=== PATIENT | female | born 2000 | race African-American/Black ===

== ENCOUNTER 2022-08-19 17:28 | Emergency (ER) | payer OTHER, SELFPAY ==
--- NOTE | ~2022-08-19 | XR_ITS ---
EXAM: XR ankle LT min 3V, XR foot LT min 3V DATE: 08/19/2022 18:19 (accession [id number]), 08/19/2022 18:18 (accession [id number]) HISTORY: rolled LT ankle/foot x 2days pain lateral aspect . COMPARISON: None available. FINDINGS: Normal mineralization. No fracture or dislocation. No lytic or blastic lesion. Joint space s are maintained. No erosion or periosteal change. Soft tissues within normal limits. IMPRESSION: No acute osseous finding in the left ankle or left foot. Reviewed, dictated and finalized at location K. UAL CUSTOMER ASSISTANT IMPRESSION: No acute osseous finding in the left ankle or left foot.
--- NOTE | 2022-08-19 17:34 | ED.LOWEXIN ---
HPI - Extremity Injury (Lower) General Chief Complaint: Extremity Injury, Lower Stated Complaint: lt ankle injury Time Seen by Provider: 08/19/22 18:21 Source: patient and RN notes reviewed Mode of arrival: ambulatory Limitations: no limitations History of Present Illness HPI Narrative: 22-year-old female presents with concern for left ankle pain. Reports she was wearing high heels on Friday when she rolled her ankle. She reports lateral pain with range of motion and weight-bearing. She denies no pain at rest. She denies swelling, bruising. She reports she has been elevating the ankle. complaint: ankle injury Related Data Home Medications Medication Instructions Recorded Confirmed No Home Medications 08/19/22 08/19/22 Allergies Allergy/AdvReac Type Severity Reaction Status Date / Time No Known Allergies Allergy Verified 08/19/22 17:39 Review of Systems Review of Systems: CONSTITUTIONAL: Denies malaise, chills, sweats, or fever. SKIN: Denies rash or itching, open skin, laceration, abrasion, redness, warmth, swelling. MUSCULOSKELETAL: Reports left ankle and foot pain NEUROLOGIC: Denies numbness, weakness All systems reviewed & are unremarkable except as noted in HPI and below PMFSH Comments At time of signature, agree with nursing past medical, surgical, social and family history. There is no relevant family history pertinent to the presenting complaint Exam Narrative: GENERAL: Well-appearing, well-nourished, and in no acute distress. HEAD: Normocephalic, atraumatic. EYES: PERRLA, conjunctivae clear NECK: Supple. CHEST: Speaks in full sentences. No respiratory distress. HEART: Regular rate and rhythm. Normal and equal peripheral pulses. EXTREMITIES: Left ankle, foot, digits have normal strength and sensation, normal range of motion. No edema or ecchymosis. 5/5 strength with ankle in digit flexion and extension. Normal sensation with sensitivity to light touch and pain. No point tenderness. No open wounds, no skin tenting, no devitalized tissue or atrophy, no trophic changes, no obvious deformity, alignment normal, nearby joints and structures intact. Distal pulses palpable and equal bilaterally, skin warm, dry, pink. Capillary refill less than 3 seconds. SKIN: Warm, dry, no rash. NEURO: Alert and oriented x3. PSYCH: Normal mood and affect Course Course Emergency Course: Patient is aware of diagnosis, understands and agrees to treatment plan. Anticipatory guidance given. Patient agrees to follow-up as directed and is aware of reasons to seek care at the emergency department. Portions of this record may have been created with voice recognition software Level of Care: Express Care Visit Vital Signs Vital signs: Vital Signs Temperature 98.2 F 08/19/22 17:39 Pulse Rate 91 08/19/22 17:39 Respiratory Rate 16 08/19/22 17:39 Blood Pressure 117/79 08/19/22 17:39 Pulse Oximetry 100 08/19/22 17:39 Oxygen Delivery Room Air 08/19/22 17:39 Temperature 98.2 F 08/19/22 17:39 Pulse Rate 91 08/19/22 17:39 Respiratory Rate 16 08/19/22 17:39 Blood Pressure 117/79 08/19/22 17:39 Pulse Oximetry 100 08/19/22 17:39 Oxygen Delivery Room Air 08/19/22 17:39 Reviewed. MDM - Extremity Injury (Lower) MDM Narrative Medical decision making narrative: Patients injury and pain is consistent with musculoskeletal etiology. No signs of neurological or vascular compromise on exam. Compartments and tissues are soft without signs of compartment syndrome. Pain is felt appropriate for further evaluation on an outpatient basis. Lab Data Labs: UCG Bedside Result Negative Reference Range: Negative UCG Bedside Result Negative Reference Range: Negative Imaging Data My impression: Images reviewed, interpreted by radiologist, agree, see report. Radiologist's i
[2022-08-19 17:39] VITALS: BP 117/79; PULSE 91; RESP 16; TEMP 36.8; O2SAT 100
== END 2022-08-19 18:33 | disposition home or self-care (01) ==
PROVIDERS: Emergency Provider Nurse Practitioner; PCP Nurse Practitioner Family
DX: S93.402A Sprain of unspecified ligament of left ankle, initial encounter (principal); S96.912A Strain of unspecified muscle and tendon at ankle and foot level, left foot, initial encounter; X50.0XXA Overexertion from strenuous movement or load, initial encounter
CPT/HCPCS: 73610; 73630; 81025; 99213; G0463

== ENCOUNTER 2023-12-17 17:47 | Emergency (ER) | payer OTHER, SELFPAY ==
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
[2023-12-17 17:52] VITALS: BP 143/86; PULSE 87; RESP 16; TEMP 36.3; O2SAT 100
[2023-12-17] MEDS: CYCLOBENZAPRINE HCL 5 MG TABLET PO (18:26)
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
[2023-12-17 19:23] VITALS: BP 127/80; PULSE 78; RESP 15; O2SAT 99
== END 2023-12-17 19:25 | disposition home or self-care (01) ==
PROVIDERS: Emergency Provider Physician Assistant; PCP Nurse Practitioner Family
DX: S09.90XA Unspecified injury of head, initial encounter (principal); S16.1XXA Strain of muscle, fascia and tendon at neck level, initial encounter; V43.52XA Car driver injured in collision with other type car in traffic accident, initial encounter
CPT/HCPCS: 70450; 72125; 99284; A9270

== ENCOUNTER 2025-03-22 21:11 | Emergency (ER) | payer SELFPAY ==
--- NOTE | ~2025-03-22 | CT_ITS ---
EXAMINATION: CT abdomen pelvis w con DATE: 03/23/2025 02:15 INDICATION: Abdominal pain. Vomiting. TECHNIQUE: Computed tomography (CT) of the abdomen and pelvis was performed 100 mL Omnipaque 350 intravenous contrast. Automated exposure control and iterative reconstruction technique were employed. The dose-length product was 442.07 mGy-cm. COMPARISON: None. FINDINGS: The visualized portions of the lung bases are clear without pneumonia or pleural effusion. The heart size is normal. No pericardial effusion. There is diffuse hepatic steatosis. The gallbladder, spleen, pancreas, adrenal glands, and kidneys are normal. There are no dilated loops of bowel. The appendix is normal. There are no pathologically enlarged lymph nodes. There is no free intraperitoneal fluid. There is mild lumbar spondylosis. IMPRESSION: 1. Diffuse hepatic steatosis. Reviewed, dictated and finalized at location E.
--- OUTSIDE RECORDS SUMMARY | 2025-03-22 21:13 | XMS_ITS | Clinical Summary ---
Author Organization [facility] [address] [place] Address [address] [place] [id number] Care Team Providers Care Sulphate Tester Name Role Phone Unknown, Notinfile Primary Care Provider Unavail able Allergies No known active allergies Medications cyanocobalamin (Vitamin B-12) 500 mcg tablet Take 1 tablet every day by oral route. 3 Active ergocalciferol (VITAMIN D) 50,000 unit capsule Take 1 capsule every week by oral route. 3 Active escitalopram (LEXAPRO) 10 mg tablet Take 1 tablet (10 mg total) by mouth daily 3 Active fluticasone propionate (FLONASE) 50 mcg/actuation nasal spray Administer 1-2 sprays into affected nostril(s) daily 2 Active ketoconazole (NIZORAL) 2 % cream APPLY TOPICALLY TO AFFECTED AREA EVERY DAY NEEDED Active ondansetron ODT (ZOFRAN-ODT) 4 mg disintegrating tablet Take 1 tablet (4 mg total) by mouth every 8 (eight) hours as needed 9 Active triamcinolone (KENALOG) 0.1 % cream APPLY A THIN LAYER TOPICALLY TO AFFECTED AREA TWICE A DAY NEEDED Active valACYclovir (VALTREX) 1 gram tablet Take 1 tablet (1,000 mg total) by mouth daily 3 Active Active Problems No known active problems Social History Tobacco Use Types Packs/Day Years Used Date Smoking Tobacco: Never Assessed Personal Safety Answer Date Recorded Getting School Help Needed Not on file 10/17 Comments Unknown Sex and Gender Information Value Date Recorded Sex Assigned at Not on file Legal Sex Female 12:24 AM CDT Gender Identity Female 10/18/2023 10:06 AM CDT Sexual Orientation Bisexual 10/18/2023 10 :06 AM CDT Last Filed Vital Signs Vital Sign Reading Time Taken Comments Blood Pressure 122/76 10/18/2023 3:54 PM CDT Pulse 100 10/18/2023 3:54 PM CDT Temperature 37 C (98.6 F) 10/18/2023 3:54 PM CDT Respiratory Rate 20 10/18/2023 3:54 PM CDT Oxygen Saturation 98% 10/18/2023 3:54 PM CDT Inhaled Oxygen Concentration - - Weight 69.4 kg (153 lb) 10/18/2023 3:54 PM CDT Height 165.1 cm (5' 5) 10/18/2023 3:54 PM CDT Body Mass Index 25.46 10/18/2023 3:54 PM CDT Plan of Treatment Health Maintenance Due Date Last Done Comments Cervical Cancer Screening 2001 Depression Screening 2001 Hepatitis C Screening 2001 Regular Well Visit/Exam 18-64 2019 DTaP/Tdap/Td Vaccine (7 - Td or Tdap) 01/14/2022 01/15/2012, 12/12/2005, 05/14/2002, Additional history exists Influenza Vaccine (#1) 2025 07/15/2016, 2012 Pneumococcal vaccine <65 Aged Out 002, 2001, 2001 No longer eligible based on patient's age to complete this topic Hepatitis B Screening Completed 05/14/2002 , 2001, 2001 Varicella Vaccines Completed 01/15/2012, 08/16/2002 HPV Vaccines Completed 09/20/2015, 03/25, 02/13/2015 Insurance [facility] Care Teams Sulphate Tester Relationship Specialty Start Date End Date Unknown, Notinfile PCP - General 10/18/23
--- OUTSIDE RECORDS SUMMARY | 2025-03-22 21:13 | XMS_ITS | Clinical Summary ---
Demographics Address [address] [place] [address] Mobile Phone Home Phone Preferred Language Icelandic Marital Status Single Tenriism Affiliation None Race Black or Debbie rican Ethnic Group Not or Lati no Author Organization [facility] Address [address] [place] [address] Phone Care Team Providers Care Main Entree Cook And Cashier Name Role Phone Ben Deluna MD Primary Care Provider [phone] Allergies No known active allergies Medications fluticasone (FLONASE) 50 MCG/ACT NA SUSPIndications: Sinusitis acute 1-2 Sprays by Nasal route daily. Use in each nostril as directed. 1 Inhaler 0 2 Active Additional Information Patient not taking.Reported on 02/01/2019 ondansetron (ZOFRAN-ODT) 4 MG TABLET DISPERSIBLE Take 1 Tab by mouth every 8 hours as needed for Nausea - 1st line. 10 Tab 9 Active valACYclovir (VALTREX) 1 GM Tablet Take 1 Tab by mouth 2 times daily. 20 Tab 0 Active Active Problems Problem Noted Date Diagnosed Date Hypokalemia 08/20/2018 Tylenol overdose 08/19/2018 Immunizations Immunization Administration Dates Next Due PUR FLU 3+ YRS PRES FREE QUAD IM 07/15/2016 Social History Tobacco Use Types Packs/Day Years Used Date Smoking Tobacco: Never Smokeless Tobacco: Never Alcohol Use Standard Drinks/Week Comments No 0 (1 standard drink = 0.6 oz pur e alcohol) Comments No Sex and Gender Information Value Date Recorded Sex Assigned at Not on file Legal Sex Female 2:43 AM FUEL MANAGEMENT HANDLER Gender Identity Not on file Sexual Orientation Not on file Last Filed Vital Signs Vital Sign Reading Time Taken Comments Blood Pressure 114/60 06/13/2020 6:51 PM FUEL MANAGEMENT HANDLER Pulse 95 06/13/2020 6:51 PM FUEL MANAGEMENT HANDLER Temperature 36.9 C (98.5 F) 06/13/2020 6:51 PM FUEL MANAGEMENT HANDLER Respiratory Rate 16 06/13/2020 6:51 PM FUEL MANAGEMENT HANDLER Oxygen Saturation 100% 06/13/2020 6:51 PM FUEL MANAGEMENT HANDLER Inhaled Oxygen Concentration - - Weight 61.2 kg (135 lb) 06/13/2020 6:51 PM FUEL MANAGEMENT HANDLER Height 165.1 cm (5' 5) 06/13/2020 6:51 PM FUEL MANAGEMENT HANDLER Body Mass Index 22.47 06/13/2020 6:51 PM FUEL MANAGEMENT HANDLER Plan of Treatment Health Maintenance Due Date Last Done Comments Hepatitis C Virus (HCV) Screening 2001 Influenza Immunization (#1) 2025 07/15/2016, 0 03/18/2013 SARS-COV-2 Immunization ( season) 2025 Respiratory Syncytial Virus (RSV) Immunization (Adult) (1 - 1-dose 75+ series) 02/12/2076 Pneumococcal Immunization Combined Aged Out 2001, 2001, 2001 No longer eligible based on patient's age to complete this topic Hepatitis B Immunization Completed 002, 2001, 2001 Measles Mumps Rubella (MMR) Immunization Discontinued 03/18/2005, 02/12/2002 Polio (IPV) Immunization Discontinued 006, 2001, 2001, Additional history exists DTaP/Tdap/Td Immunization Discontinued 2011, 12/12/2005, 05/14/2002, Additional history exists Hepatitis A Immunization Discontinued 01/15/2012, 11/22 TdaP Immunization Completed 01/15/2012 Varicella Immunization Discontinued 01/15/2012, 2002 Human Papillomavirus (HPV) Immunization Completed 09/20/2015, 04/21/2015, 02/13/2015 Meningococcal B Immunization Discontinued 01/14/2018 Meningococcal Immunization (ACWY) Completed 01/14/2018, 03/18/2013 Rotavirus Immunization Aged Out No lo nger eligible based on patient's age to complete this topic Insurance * Guarantor: BERT MARKS Account Type Relation to Patient Date of Phone Billing Address Personal/Family Mother 1985 [address] [place] [address] MEDICAID [employer] * Guarantor: BERT MARKS Account Type Relation to Patient Date of Phone Billing Address Personal/Family Mother [id number] MEDICAID [employer] [address] [place] [id number] [employer] Advance Directives * Full Code (Latest Code Status on File) Date Activated Date Inactivated Comments 08/19/2018 6:49 AM 08/20/2018 9:07 PM CPR-Full Ervin atment: FULL ARREST: Attempt Resuscitation/CPR wit intubation and mechanical ventilation. PRE-ARREST: Use entire range of life support measures to stabilize the patient. Care Teams Main Entree Cook And Cashier Relationship Specialty Start Date End Date Ben Deluna MD [address] [place] [id number] PCP - General 05/09/11
--- OUTSIDE RECORDS SUMMARY | 2025-03-22 21:13 | XMS_ITS | Patient Health Record ---
Demographics Address [address] [place] [address] Mobile Preferred Language en Marital Status unmarried Zoroastrianism Affiliation Unknown Race Black or Debbie rican Ethnic Group Not or Lati no Author Organization [facility] Address [address] [place] [address] Care Team Providers Care Fish Hatchery Inspector Name Role Phone Mikie, Ben Primary Care Provider Allergies No Known Allergies Reason For Referral No Information Immunizations Vaccine Route Administration Date Status Comme nts BOOSTRIX Unknown 01/15/2012 Administered Comvax (Hep B and Hib) Unknown 2001 Administered Comvax (Hep B and Hib) Unknown 2001 Administered Comvax (Hep B and Hib) Unknown 05/14/2002 Administered DAPTACEL Unknown 2001 Administered DAPTACEL Unknown 2001 Administered DAPTACEL Unknown 2001 Administered DAPTACEL Unknown 05/14/2002 Administered DAPTACEL Unknown 12/12/2005 Administered FLUMIST QUADRIVALENT Unknown 03/18/2013 Administered GARDASIL 9 IM Intramuscular 02/13/2015 Administered GARDASIL 9 IM Intramuscular 04/21/2015 Administered GARDASIL 9 IM Intramuscular 09/20/2015 Administered HAVRIX Ped/Adol Unknown 12/12/2005 Administered HAVRIX Ped/Adol Unknown 01/15/2012 Administered IPOL Unknown 2001 Administered IPOL Unknown 2001 Administered IPOL Unknown 2001 Administered IPOL Unknown 12/12/2005 Administered Menactra Unknown 03/18/2013 Administered Menactra Unknown 01/14/2018 Administered MMR II Unknown 02/12/2002 Administered MMR II Unknown 03/18/2005 Administered Prevnar PCV7 Unknown 2001 Administered Prevnar PCV7 Unknown 2001 Administered Prevnar PCV7 Unknown 2001 Administered TRUMENBA Unknown 01/14/2018 Administered VARIVAX Unknown 08/16/2002 Administered VARIVAX Unknown 01/15/2012 Administered Social History HOUSEHOLD SMOKE - Question Answer Notes Smoker in Household: YES Problems Problem Type SNOMED Code ICD Code Onset Dates Problem Status W/U Status Risk Notes Problem Information temporarily unavailable Allergic rhinitis, cause unspecified (J30.9) Active confirmed Problem Information temporarily unavailable Depressed mood (F32.9) Active confirmed Problem Information temporarily unavailable Contact dermatitis and eczema (L25.9) Active confirmed Problem Information temporarily unavailable Vitamin D deficiency (E55.9) Active confirmed Problem Information temporarily unavailable Other depression (F32.89) Active confirmed Problem Information temporarily unavailable Iron deficiency anemia, unspecified iron deficiency anemia type (D50.9) Active confirmed Problem Information temporarily unavailable Constipation in female (K59.00) Active confirmed Problem Information temporarily unavailable 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
--- OUTSIDE RECORDS SUMMARY | 2025-03-22 21:13 | XMS_ITS | Clinical Summary ---
Demographics Address [address] [place] [address] Home Phone Preferred Language Unknown Marital Status Single Faith Affiliation Unknown Race Black or Debbie rican Ethnic Group Unknown Author Organization [facility] Address [address] [place] [address] Care Team Providers Care Wire Setter Name Role Phone Unavailable Primary Care Provider Unavailabl e Social History Tobacco Use Types Packs/Day Years Used Date Smoking Tobacco: Never Assessed Inadequate Housing Answer Date Recorded Social Determinants: Housing (Overall Score Help er) 0 02/02/2019 Comments Unknown Sex and Gender Information Value Date Recorded Sex Assigned at Not on file Legal Sex Female 12:31 PM CDT Gender Identity Not on file Sexual Orientation Not on file Plan of Treatment Health Maintenance Due Date Last Done Comments Depression Screening 2013 Varicella Vaccine (1 of 2 - 13+ 2-dose series) 2014 HPV Vaccine (1 - 3-dose series) 02/12/2016 Chlamydia and Gonorrhea Scre ening (if sexually active) 2019 DTaP/Tdap/Td Vaccine (1 - Tdap) 02/12/2020 Hepatitis B Vaccine (1 of 3 - 19+ 3-dose series) 02/12/2020 COVID-19 Vaccine ( - 2023-2 5 season) 2025 Influenza Vaccine (#1) 2025 Hepatitis A Vaccine Aged Out No longe r eligible based on patient's age to complete this topic Meningococcal Serogroup B Vaccine Aged Out No longer eligible based on patient's age to complete this topic Meningococcal Vaccine Aged Out No iraida violet eligible based on patient's age to complete this topic Pneumococcal Vaccine 0-49 Aged Out No longer eligible based on patient's age to complete this topic
[2025-03-22 21:21] VITALS: BP 127/87; PULSE 124; RESP 18; TEMP 36.7; O2SAT 100
[2025-03-22 21:41] LABS: BEDSIDEPREGUCG Negative (Negative)
[2025-03-22 22:33] LABS: Add Urine Microscopic? YES; Appearance Urine Turbid (Clear); Glucose Urine UA Negative (Negative); Leukocyte Esterase Ur Trace LEU/UL (Negative); Need Manual Microscopic Reviewed; Nitrate Urine Negative (Negative); Non Pathogenic Casts >20; Specific Grav Ur 1.032 (1.001-1.035)
--- OUTSIDE RECORDS SUMMARY | 2025-03-23 00:07 | XMS_ITS | Data Portability ---
Author Organization [place] - [facility] [employer], Main Office Address [address] [place] [address] Assessment Encounter Date Assessment Date Assessment LastModified by Organization Details LastModified Time 12/04/2022 12/04/2022 WWE- referred to [facility]- Lidia Call office if worse, ER if life-threatening illness RTC in 1 month She voices understanding of plan and agrees [email or web address] Not available 12/04/2022 13:13:21 01/01/2023 01/01/2023 WWE- referred to [facility]ER- Lidia WEA-12/04/22 Call office if worse, ER if life-threatening illness RTC in 4 months She voices understanding of plan and agrees [email or web address] Not available 01/01/2023 13:51:38 Plan of Treatment Reminders Order Date Submit Date Provider Last Modified By Organization Details Last Modified Time Details Appointments None recorded. Lab gamma-gluta myl transferase (ggt), serum 2022 023 [facility] (Lab), [address] [place], [address], 19:24:30 hepatitis panel (A+B+C), acute, serum 2022 023 [facility] (Lab), [address] [place], [address], 19:47:45 hepatic function panel, serum 2022 023 [facility] (Lab), [address] [place], [address], 3 19:24:36 potassium, serum or plasma 2022 023 [facility] (Lab), [address] [place], [address], 3 19:24:27 lipid panel, serum 2022 023 [facility] (Lab), [address] [place], [address], 3 19:34:53 CBC w/ auto diff 2022 023 [facility] (Lab), [address] [place], [address], 3 19:34:15 CMP, serum or plasma 2022 023 [facility] (Lab), [address] [place], [address], 3 19:34:47 ferritin, serum or plasma 2022 023 [facility] (Lab), [address] [place], [address], 3 20:26:54 iron + total iron-bindin g capacity (TIBC), serum 2022 023 [facility] (Lab), [address] [place], [address], 3 19:33:14 vitamin D, 25-hydroxy, total, serum 2022 023 [email or web address] [facility] (Lab), [address] [place], [address], 3 10:10:33 glycohemogl obin, total, blood 2022 023 [facility] (Lab), [address] [place], [address], 3 21:18:11 vitamin B12 + folate, serum or blood 2022 023 [email or web address] [facility] (Lab), [address] [place], [address], 3 10:10:33 Referral gynecologis t referral - needs WWE 2022 023 [place] [address] Arti Murillo, [address], [address], Ph [phone] 4 15:22:52 Procedures None recorded. Surgeries None recorded. Imaging None recorded. Medication Orders escitalopra m 10 mg tablet [address] [id number], [address], [place], [id number], 3 13:49:22 ketoconazol e 2 % topical cream 2022 023 [facility][id number], [address], [place], [id number], 3 12:30:12 triamcinolo ne acetonide 0.1 % topical cream 2022 023 [facility] #[id number], [address], [place], [id number], 3 12:30:09 escitalopra m 10 mg tablet 2022 023 [facility] #[id number], [address], [place], [id number], 3 12:30:10 Patient TargetsNo targets recorded. Patient Instructions Encounter Date Encounter Id Patient Instructions Last Modified By Organization Details Last Modified Time 12/04/2022 [id number] INFLUENZA VACCIN E Your next one in the fall of 2022 TD/TDAP Patient will get at local pharmacy/health department MAMMOGRAM No screening indicated at this time/ no family history CERVICAL SCREENING/PELVIC EXAMINATION Ordered COLORECTAL SCREENING No screening necessary until age 45 DEPRESSION SCREENING Positive BMI Appropriate Continue healthy eating & exercise NUTRITION Continue healthy eating & exercise PHYSICAL ACTIVITY Need more activity Recommendation of 30 minutes of daily activity VISION Recommended today ALCOHOL USE Occasional/Social Use TOBACCO USE non smoker SEXUALLY ACTIVE Yes, Safe sex practices, condom use, and other forms of contraceptives that are available were discussed with patient GLUCOSE SCREENING Ordered LIPID SCREENING Ordered [email or web address] Not available 12/04/2022 13:15:02 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 0 Not Available [facility] (Lab) [address] [place], [address], 03/12/2021 15:32:50 03/12/20 21 03/12/2021 URINA LYSIS COMPL ETE/I RIS W/RFX color light- yellow Not Available [facility] (Lab) [address] [place], [address], 03/12/2021 15:32:50 03/12/20 21 03/12/2021 URINA LYSIS COMPL ETE/I RIS W/RFX appear clear Not Available [facility] (Lab) [address] [place], [address], 03/12/2021 15:32:50 03/12/20 21 03/12/2021 URINA LYSIS COMPL ETE/I RIS W/RFX specific gravity 1.025 1.001- 1.030 Not Available [facility] (Lab) [address] [place], [address], 03/12/2021 15:32:50 03/12/20 21 03/12/2021 URINA LYSIS COMPL ETE/I RIS W/RFX leukocytes negati ve dominick/u L negati ve- Not Available [facility] (Lab) [address] [place], [address], 03/12/2021 15:32:50 03/12/20 21 03/12/2021 URINA LYSIS COMPL ETE/I RIS W/RFX nitrite negati ve negati ve- Not Available [facility] (Lab) [address] [place], [address], 03/12/2021 15:32:50 03/12/20 21 03/12/2021 URINA LYSIS COMPL ETE/I RIS W/RFX protein negati ve mg/dL negati ve- Not Available [facility] (Lab) [address] [place], [address], 03/12/2021 15:32:50 03/12/20 21 03/12/2021 URINA LYSIS COMPL ETE/I RIS W/RFX glucose normal mg/dL normal - Not Available [facility] (Lab) [address] [place], [address], 03/12/2021 15:32:50 03/12/20 21 03/12/2021 URINA LYSIS COMPL ETE/I RIS W/RFX ketones 20 mg/dL negati ve- abnormal Not Available [facility] (Lab) [address] [place], [address], 03/12/2021 15:32:50 03/12/20 21 03/12/2021 URINA LYSIS COMPL ETE/I RIS W/RFX urobilinogen normal mg/dL normal - Not Available [facility] (Lab) [address] [place], [address], 03/12/2021 15:32:50 03/12/20 21 03/12/2021 URINA LYSIS COMPL ETE/I RIS W/RFX bilirubin negati ve mg/dL negati ve- Not Available [facility] (Lab) [address] [place], [address], 03/12/2021 15:32:50 03/12/20 21 03/12/2021 URINA LYSIS COMPL ETE/I RIS W/RFX blood negati ve mg/dL negati ve- Not Available [facility] (Lab) [address] [place], [address], 03/12/2021 15:32:50 03/12/20 21 03/12/2021 URINA LYSIS COMPL ETE/I RIS W/RFX white blood cells 0-8 /i??h pfi?? 0-8 Not Available [facility] (Lab) [address] [place], [address], 03/12/2021 15:32:50 03/12/20 21 03/12/2021 URINA LYSIS COMPL ETE/I RIS W/RFX red blood cells 0-4 /i??h pfi?? 0-4 Not Available [facility] (Lab) [address] [place], [address], 03/12/2021 15:32:50 03/12/20 21 03/12/2021 URINA LYSIS COMPL ETE/I RIS W/RFX bacteria none Not Available [facility] (Lab) [address] [place], [address], 03/12/2021 15:32:50 03/12/20 21 03/12/2021 URINA LYSIS COMPL ETE/I RIS W/RFX mucous occasi onal /i??l pfi?? abnormal Not Available [facility] (Lab) [address] [place], [address], 03/12/2021 15:32:50 03/12/20 21 03/12/2021 URINA LYSIS COMPL ETE/I RIS W/RFX squamous epithelial modera te /i??l pfi?? abnormal Not Available [facility] (Lab) [address] [place], [address], 03/12/2021 15:32:50 03/12/20 21 03/14/2021 RPR SCREE N RPR non-re active nonrea ctive Not Available [facility] (Lab) [address] [place], [address], 03/14/2021 16:03:23 03/12/20 21 03/13/2021 HSV 1 AND 2-SPE C AB, IGG W/RFX hsv 1 IgG, type spec 8.93 index 0.00-0 .90 high Negat monse <0.91 Equiv ocal 0.91 - 1.09 Posit monse >1.09 Note: Negat monse indic ates no antib odies detec kelton to HSV-1 . Equiv ocal may sugge st early infec tion. If clini vazquez appro priat e, retes t at later date. Posit monse indic ates antib odies detec kelton to HSV-1 . Not Available [facility] (Lab) [address] [place], [address], 03/13/2021 13:09:33 03/12/20 21 03/13/2021 HSV 1 AND 2-SPE C AB, IGG W/RFX hsv 2 IgG, type spec 3.09 index 0.00-0 .90 high Negat monse <0.91 Equiv ocal 0.91 - 1.09 Posit monse >1.09 Note: Negat monse indic ates no antib odies detec kelton to HSV-2 . Equiv ocal may sugge st early infec tion. If clini vazquez appro priat e, retes t at later date. Posit monse indic ates antib odies detec kelton to HSV-2 . [facility] [address] [place] [address] Lab Direc tor: Paulo burnett PhD, Phone : [phone] Not Available [facility] (Lab) [address] [place], [address], 03/13/2021 13:09:33 03/12/2003/13/2021 HSV 1 AND 2-SPE C AB, IGG W/RFX hsv-2 IgG supplemental test positi ve negati ve abnormal HSV-2 IgG HSV-2 IgG Type Speci fic Confi rmati on Inter preta tion ----- ----- ----- ----- ----- ----- ----- ----- ----- ----- ----- Posit monse/E quivo manolo Posit monse Indic ates the prese nce of detec table IgG antib odies to HSV-2 . ----- ----- ----- ----- ----- ----- ----- ----- ----- ----- ----- Posit monse/E quivo manolo Negat monse Unabl e to confi rm the prese nce of IgG antib odies to HSV-2 . Recom mend retyves harris in 2-4 weeks . ----- ----- ----- ----- ----- ----- ----- ----- ----- ----- ----- Perfo rmed at: [facility] [address] [place] [address] Lab Direc tor: Paulo burnett PhD, Phone : [phone] Not Available [facility] (Lab) [address] [place], [address], 03/13/2021 13:09:33 03/12/20 21 03/12/2021 HEMOG LOBIN A1C HA1C 5.2 % 4.0-6. 0 Diabe angelito Scree cinthia Crite madeleine: <5.7% Consi stent with absen ce of diabe angelito 5.7-6 .4% Consi stent with incre ased risk for diabe angelito (pred iabet es) >OR=6 .5% Consi stent with diabe angelito REFER ENCE: Diabe angelito Care 2016, 39(Campoverde ppl.1 ):s13 -s22 Not Available [facility] (Lab) [address] [place], [address], 03/12/2021 19:50:50 03/12/20 21 03/12/2021 FOLAT E, SERUM /PLAS MA folate 5.44 NG/mL 2.76- Not Available [facility] (Lab) [address] [place], [address], 03/12/2021 17:53:30 03/12/20 21 03/12/2021 VITAM IN B12 (LOVE TRISH ) vb12 375 pg/mL 239-93 1 Not Available [facility] (Lab) [address] [place], [address], 03/12/2021 17:53:27 03/12/20 21 03/12/2021 HEPAT ITIS ACUTE PANEL hepatitis A IgM antibody non-re active non-re active For sampl es repor kelton as Sahara rey React monse for HAV IgM, it is recom wallace d a new speci men be obtai ezekiel in 2 weeks and retes kelton. Not Available [facility] (Lab) [address] [place], [address], 03/12/2021 17:40:59 03/12/20 21 03/12/2021 HEPAT ITIS ACUTE PANEL S/C 0.02 0.00-0 .79 Not Available [facility] (Lab) [address] [place], [address], 03/12/2021 17:40:59 03/12/20 21 03/12/2021 HEPAT ITIS ACUTE PANEL hepatitis B core IgM antibody non-re active non-re active Not Available [facility] (Lab) [address] [place], [address], 03/12/2021 17:40:59 03/12/20 21 03/12/2021 HEPAT ITIS ACUTE PANEL S/C 0.04 0.00-1 .10 Not Available [facility] (Lab) [address] [place], [address], 03/12/2021 17:40:59 03/12/20 21 03/12/2021 HEPAT ITIS ACUTE PANEL hepatitis B surface antigen non-re active non-re active Not Available [facility] (Lab) [address] [place], [address], 03/12/2021 17:40:59 03/12/20 21 03/12/2021 HEPAT ITIS ACUTE PANEL S/C 0.08 0.00-0 .99 Not Available [facility] (Lab) [address] [place], [address], 03/12/2021 17:40:59 03/12/20 21 03/12/2021 HEPAT ITIS ACUTE PANEL hepatitis C antibody non-re active non-re active Not Available [facility] (Lab) [address] [place], [address], 03/12/2021 17:40:59 03/12/20 21 03/12/2021 HEPAT ITIS ACUTE PANEL S/C 0.05 0.00-0 .99 Not Available [facility] (Lab) [address] [place], [address], 03/12/2021 17:40:59 03/12/20 21 03/12/2021 ROME TIN ferritin 10 NG/mL 6.24-1 37 Not Available [facility] (Lab) [address] [place], [address], 03/12/2021 17:25:50 03/12/20 21 03/12/2021 B-HCG TOTAL , QUANT ITATI VE human chorionic gonadotropin <2.39 mIU/m L 0.00-4 .82 WEEKS OF PREGN ADINA REFER ENCE RANGE S 4 420 TO 6,230 5 620 TO 29,30 0 6 3,660 TO 108,0 00 7 10,90 0 TO 148,0 00 8 30,70 0 TO 184,0 00 9 67,20 0 TO 169,0 00 10 30,00 0 TO 167,0 00 14 15,00 0 TO 92,10 0 15 10,60 0 TO 64,20 0 16 9,000 TO 52,80 0 17 6,700 TO 47,10 0 18 6,100 TO 42,10 0 19 6,800 TO 42,90 0 Not Available [facility] (Lab) [address] [place], [address], 03/12/2021 17:08:03 03/12/20 21 03/12/2021 VITAM IN D 25-HY DROXY [id number] 15.4 NG/mL 30-100 low Vitam in D Statu s: Defic ient: <20 ng/mL Insuf ficie nt: 20-29 ng/mL Suffi cient : 30-10 0 ng/mL Not Available [facility] (Lab) [address] [place], [address], 03/12/2021 17:06:44 03/12/20 21 03/12/2021 IRON/ TIBC PANEL iron 120 mcg/d L 42-175 Not Available [facility] (Lab) [address] [place], [address], 03/12/2021 16:51:08 03/12/20 21 03/12/2021 IRON/ TIBC PANEL total iron binding capacity 359 mcg/d L 265-47 5 Not Available [facility] (Lab) [address] [place], [address], 03/12/2021 16:51:08 03/12/20 21 03/12/2021 IRON/ TIBC PANEL % transferrin saturation 33 % 20-55 Not Available [facility] (Lab) [address] [place], [address], 03/12/2021 16:51:08 03/12/20 21 03/12/2021 IRON/ TIBC PANEL unsaturated iron bind capacity 239 mcg/d L 126-38 2 Not Available [facility] (Lab) [address] [place], [address], 03/12/2021 16:51:08 03/12/20 21 03/12/2021 LIPID PANEL cholesterol 180 mg/dL 140-19 9 NIH YOLANDE NSUS RECOM MENDA TION FOR RICK STERO L: ADULT CHILD LOW RISK: <200 <170 BORDE RLINE : <200- 239 ----- HIGH RISK: >240 >200 Not Available [facility] (Lab) [address] [place], [address], 03/12/2021 16:47:49 03/12/20 21 03/12/2021 LIPID PANEL triglyceride s 50 mg/dL 0-150 NIH YOLANDE NSUS REPOR T RECOM MENDA TION FOR TRIGL YCERI KARIN: ADULT CHILD LOW RISK: <150 ----- BODER LINE: 150-1 99 ----- HIGH RISK: >200 ----- Not Available [facility] (Lab) [address] [place] [address], [address], 03/12/2021 16:47:49 03/12/20 21 03/12/2021 LIPID PANEL HDL cholesterol 92 mg/dL 40- Not Available [facility] (Lab) [address] [place], [address], 03/12/2021 16:47:49 03/12/20 21 03/12/2021 LIPID PANEL LDL cholesterol, calculated 78 mg/dL 0-130 NIH YOLANDE NSUS REPOR T RECOM MENDA TIONS FOR LDL: ADULT CHILD LOW RISK <130 <110 (OPTI MAL LDL) <100 ----- BORDE RLINE : 130-1 59 ----- HIGH RISK: >160 >130 A TRIGL YCERI DE RESUL T >400 INVAL IDATE S THE CALCU LATIO N FOR LDL FRACT IONAT ION - THE LDL RESUL T WILL NOT BE REPOR KELTON. Not Available [facility] (Lab) [address] [place], [address], 03/12/2021 16:47:49 03/12/20 21 03/12/2021 COMPR EHENS MONSE METAB OLIC PANEL BUN 14 mg/dL 8-19 Not Available [facility] (Lab) [address] [place], [address], 03/12/2021 16:47:42 03/12/20 21 03/12/2021 COMPR EHENS MONSE METAB OLIC PANEL sodium 135 mmol/ L 137-14 5 low Not Available [facility] (Lab) [address] [place], [address], 03/12/2021 16:47:42 03/12/20 21 03/12/2021 COMPR EHENS MONSE METAB OLIC PANEL potassium 4.2 mmol/ L 3.5-5. 1 Not Available [facility] (Lab) [address] [place], [address], 03/12/2021 16:47:42 03/12/20 21 03/12/2021 COMPR EHENS MONSE METAB OLIC PANEL chloride 108 mmol/ L 98-107 high Not Available [facility] (Lab) [address] [place], [address], 03/12/2021 16:47:42 03/12/20 21 03/12/2021 COMPR EHENS MONSE METAB OLIC PANEL carbon dioxide 21 mmol/ L 22-30 low Not Available [facility] (Lab) [address] [place], [address], 03/12/2021 16:47:42 03/12/20 21 03/12/2021 COMPR EHENS MONSE METAB OLIC PANEL agap 10.2 mmol/ L 14-22 low Not Available [facility] (Lab) [address] [place], [address], 03/12/2021 16:47:42 03/12/20 21 03/12/2021 COMPR EHENS MONSE METAB OLIC PANEL glucose 88 mg/dL 70-99 Not Available [facility] (Lab) [address] [place], [address], 03/12/2021 16:47:42 03/12/20 21 03/12/2021 COMPR EHENS MONSE METAB OLIC PANEL creatinine 0.57 mg/dL 0.66-1 .25 low Not Available [facility] (Lab) [address] [place], [address], 03/12/2021 16:47:42 03/12/20 21 03/12/2021 COMPR EHENS MONSE METAB OLIC PANEL GFR >60 Refer ence Range : Morton ge GFR Healt hy Adult : >60 mL/mi n/1.7 3 m2 Chron ic Kidne y Disea se: 15-60 mL/mi n/1.7 3 m2 Kidne y Failu re: <15/m L/min /1.73 m2 www.n iddk. nih.g ov MDRD study equat ion hasn' t been valid ated in child alexei <18 yrs of age, pregn ant women , the elder ly >85 yrs of age, or in some racia l or ethni c subgr oups, suc as Hispa nics. Outsi de the valid ated mitchell eters , estim ated GFR is less accur ate requi ring clini manolo judgm ent on a case by case basis . Clini manolo inter preta tion for other races and ages must be made by the clini brandon . Futhe rmore , any of th e limit ation s with the use of serum creat inine relat ed to nutri herminia l statu s o r medic ation usage hasn' t accou nted for the MDRD Study equat ion. For perso ns < 18 yrs of age, a pedia tric GFR calcu lator can be locat ed on the [facility] websi te: https ://ww w.kid don.o rg/pr ofess ional s/kdo qi/gf r_cal culat or Not Available [facility] (Lab) [address] [place], [address], 03/12/2021 16:47:42 03/12/20 21 03/12/2021 COMPR EHENS MONSE METAB OLIC PANEL alkaline phosphatase 52 U/L 38-126 Not Available [facility] (Lab) [address] [place], [address], 03/12/2021 16:47:42 03/12/20 21 03/12/2021 COMPR EHENS MONSE METAB OLIC PANEL alanine aminotransfe rase 9 U/L 0-35 Not Available [facility] (Lab) [address] [place], [address], 03/12/2021 16:47:42 03/12/20 21 03/12/2021 COMPR EHENS MONSE METAB OLIC PANEL aspartate aminotransfe rase 26 U/L 15-37 Not Available [facility] (Lab) [address] [place], [address], 03/12/2021 16:47:42 03/12/20 21 03/12/2021 COMPR EHENS MONSE METAB OLIC PANEL bilirubin, total 0.40 mg/dL 0.20-1 .30 Not Available [facility] (Lab) [address] [place], [address], 03/12/2021 16:47:42 03/12/20 21 03/12/2021 COMPR EHENS MONSE METAB OLIC PANEL calcium 9.8 mg/dL 8.4-10 .2 Not Available [facility] (Lab) [address] [place], [address], 03/12/2021 16:47:42 03/12/20 21 03/12/2021 COMPR EHENS MONSE METAB OLIC PANEL total protein 7.6 g/dL 6.3-8. 2 Not Available [facility] (Lab) [address] [place], [address], 03/12/2021 16:47:42 03/12/20 21 03/12/2021 COMPR EHENS MONSE METAB OLIC PANEL albumin 4.4 g/dL 3.4-5. 0 Not Available [facility] (Lab) [address] [place], [address], 03/12/2021 16:47:42 03/12/20 21 03/12/2021 COMPR EHENS MONSE METAB OLIC PANEL globulin 3.2 g/dL 2.6-4. 2 Not Available [facility] (Lab) [address] [place], [address], 03/12/2021 16:47:42 03/12/20 21 03/12/2021 COMPR EHENS MONSE METAB OLIC PANEL A/G ratio 1.4 ratio 1.0-2. 0 Not Available [facility] (Lab) [address] [place], [address], 03/12/2021 16:47:42 03/12/20 21 03/12/2021 HIV COMBO : HIV 1/2,P 24AG, GRP O HIV combo assay non-re active nonrea ctive The HIV combo test scree ns for HIV-1 , HIV-2 , HIV p24 Ag, and HIV group O. Any react monse scree n resul t will be sent for PCR confi rmato ry testi ng. Not Available [facility] (Lab) [address] [place], [address], 03/12/2021 16:21:48 03/12/20 21 03/12/2021 HIV COMBO : HIV 1/2,P 24AG, GRP O S/C 0.17 0.00-0 .99 Not Available [facility] (Lab) [address] [place], [address], 03/12/2021 16:21:48 03/12/20 21 03/12/2021 CBC/C OMPLE TE BLD COUNT W/DIF F hematocrit 33.1 % 35.7-4 5.7 low Not Available [facility] (Lab) [address] [place], [address], 03/12/2021 15:24:30 03/12/20 21 03/12/2021 CBC/C OMPLE TE BLD COUNT W/DIF F white blood cells 6.0 x10'3 /uL 4.2-10 .8 Not Available [facility] (Lab) [address] [place], [address], 03/12/2021 15:24:30 03/12/20 21 03/12/2021 CBC/C OMPLE TE BLD COUNT W/DIF F red blood cells 3.62 x10'6 /uL 3.80-5 .20 low Not Available [facility] (Lab) [address] [place], [address], 03/12/2021 15:24:30 03/12/20 21 03/12/2021 CBC/C OMPLE TE BLD COUNT W/DIF F hemoglobin 10.9 g/dL 12.0-1 5.6 low Not Available [facility] (Lab) [address] [place], [address], 03/12/2021 15:24:30 03/12/20 21 03/12/2021 CBC/C OMPLE TE BLD COUNT W/DIF F mean red cell volume 91.4 fL 82.0-9 9.0 Not Available [facility] (Lab) [address] [place], [address], 03/12/2021 15:24:30 03/12/20 21 03/12/2021 CBC/C OMPLE TE BLD COUNT W/DIF F mean red cell hemoglobin 30.1 pg 27.0-3 3.0 Not Available [facility] (Lab) [address] [place], [address], 03/12/2021 15:24:30 03/12/20 21 03/12/2021 CBC/C OMPLE TE BLD COUNT W/DIF F mean RBC HGB concentratio n 32.9 g/dL 31.0-3 6.0 Not Available [facility] (Lab) [address] [place], [address], 03/12/2021 15:24:30 03/12/20 21 03/12/2021 CBC/C OMPLE TE BLD COUNT W/DIF F red cell distribution width 15.7 % 11.8-1 5.5 high Not Available [facility] (Lab) [address] [place], [address], 03/12/2021 15:24:30 03/12/20 21 03/12/2021 CBC/C OMPLE TE BLD COUNT W/DIF F platelets 333 x10'3 /uL 150-40 0 Not Available [facility] (Lab) [address] [place], [address], 03/12/2021 15:24:30 03/12/20 21 03/12/2021 CBC/C OMPLE TE BLD COUNT W/DIF F mean platelet volume 10.1 fL 9.0-12 .4 Not Available [facility] (Lab) [address] [place], [address], 03/12/2021 15:24:30 03/12/20 21 03/12/2021 CBC/C OMPLE TE BLD COUNT W/DIF F neutrophils 75.8 % 39.0-7 2.0 high Not Available [facility] (Lab) [address] [place], [address], 03/12/2021 15:24:30 03/12/20 21 03/12/2021 CBC/C OMPLE TE BLD COUNT W/DIF F lymphocytes 12.8 % 16.0-4 7.0 low Not Available [facility] (Lab) [address] [place], [address], 03/12/2021 15:24:30 03/12/20 21 03/12/2021 CBC/C OMPLE TE BLD COUNT W/DIF F monocytes 6.3 % 5.0-12 .0 Not Available [facility] (Lab) [address] [place], [address], 03/12/2021 15:24:30 03/12/20 21 03/12/2021 CBC/C OMPLE TE BLD COUNT W/DIF F eosinophils 4.3 % 1.0-7. 0 Not Available [facility] (Lab) [address] [place], [address], 03/12/2021 15:24:30 03/12/20 21 03/12/2021 CBC/C OMPLE TE BLD COUNT W/DIF F basophils 0.5 % 0.0-2. 0 Not Available [facility] (Lab) [address] [place], [address], 03/12/2021 15:24:30 03/12/20 21 03/12/2021 CBC/C OMPLE TE BLD COUNT W/DIF F immature granulocytes 0.3 % 0.00-0 .50 Not Available [facility] (Lab) [address] [place], [address], 03/12/2021 15:24:30 03/12/20 21 03/12/2021 CBC/C OMPLE TE BLD COUNT W/DIF F neutrophils, absolute count 4.57 x10'3 /uL 1.5-8. 0 Not Available [facility] (Lab) [address] [place], [address], 03/12/2021 15:24:30 03/12/20 21 03/12/2021 CBC/C OMPLE TE BLD COUNT W/DIF F lymphocytes, absolute count 0.77 x10'3 /uL 1.07-3 .43 low Not Available [facility] (Lab) [address] [place], [address], 03/12/2021 15:24:30 03/12/20 21 03/12/2021 CBC/C OMPLE TE BLD COUNT W/DIF F monocytes, absolute count 0.38 x10'3 /uL 0.29-0 .99 Not Available [facility] (Lab) [address] [place], [address], 03/12/2021 15:24:30 03/12/20 21 03/12/2021 CBC/C OMPLE TE BLD COUNT W/DIF F eosinophils, absolute count 0.26 x10'3 /uL 0.02-0 .53 Not Available [facility] (Lab) [address] [place], [address], 03/12/2021 15:24:30 03/12/20 21 03/12/2021 CBC/C OMPLE TE BLD COUNT W/DIF F basophils, absolute count 0.03 x10'3 /uL 0.01-0 .08 Not Available [facility] (Lab) [address] [place], [address], 03/12/2021 15:24:30 03/12/20 21 03/12/2021 CBC/C OMPLE TE BLD COUNT W/DIF F immature granulocytes ,absolute 0.02 x10'3 /uL 0.00-0 .05 Not Available [facility] (Lab) [address] [place], [address], 03/12/2021 15:24:30 03/12/20 21 03/12/2021 CBC/C OMPLE TE BLD COUNT W/DIF F nucleated red blood cells 0.0 % -0 Not Available [facility] (Lab) [address] [place], [address], 03/12/2021 15:24:30 03/12/20 21 03/12/2021 CBC/C OMPLE TE BLD COUNT W/DIF F NRBC# 0.00 x10'3 /uL Not Available [facility] (Lab) [address] [place], [address], 03/12/2021 15:24:30 05/29/20 21 05/29/2021 FOLAT E, SERUM /PLAS MA folate 9.43 NG/mL 2.76- Not Available [facility] (Lab) [address] [place], [address], 05/29/2021 15:27:41 05/29/20 21 05/29/2021 VITAM IN B12 (LOVE TRISH ) vb12 606 pg/mL 239-93 1 Not Available [facility] (Lab) [address] [place], [address], 05/29/2021 15:27:35 05/29/20 21 05/29/2021 IRON/ TIBC PANEL iron 77 mcg/d L 42-175 Not Available [facility] (Lab) [address] [place], [address], 05/29/2021 15:06:49 05/29/20 21 05/29/2021 IRON/ TIBC PANEL total iron binding capacity 422 mcg/d L 265-47 5 Not Available [facility] (Lab) [address] [place], [address], 05/29/2021 15:06:49 05/29/20 21 05/29/2021 IRON/ TIBC PANEL % transferrin saturation 18 % 20-55 low Not Available [facility] (Lab) [address] [place], [address], 05/29/2021 15:06:49 05/29/20 21 05/29/2021 IRON/ TIBC PANEL unsaturated iron bind capacity 345 mcg/d L 126-38 2 Not Available [facility] (Lab) [address] [place], [address], 05/29/2021 15:06:49 05/29/20 21 05/29/2021 ROME TIN ferritin 7 NG/mL 6.24-1 37 Not Available [facility] (Lab) [address] [place] [address], [address], 05/29/2021 15:01:16 05/29/20 21 05/29/2021 VITAM IN D 25-HY DROXY [id number] 36.2 NG/mL 30-100 Vitam in D Statu s: Defic ient: <20 ng/mL Insuf ficie nt: 20-29 ng/mL Suffi cient : 30-10 0 ng/mL Not Available [facility] (Lab) [address] [place], [address], 05/29/2021 14:33:13 05/29/20 21 05/29/2021 COMPR EHENS MONSE METAB OLIC PANEL carbon dioxide 25 mmol/ L 22-30 Not Available [facility] (Lab) [address] [place] [address], [address], 05/29/2021 14:33:00 05/29/20 21 05/29/2021 COMPR EHENS MONSE METAB OLIC PANEL sodium 139 mmol/ L 137-14 5 Not Available [facility] (Lab) [address] [place] [address], [address], 05/29/2021 14:33:00 05/29/20 21 05/29/2021 COMPR EHENS MONSE METAB OLIC PANEL potassium 4.0 mmol/ L 3.5-5. 1 Not Available [facility] (Lab) [address] [place], [address], 05/29/2021 14:33:00 05/29/20 21 05/29/2021 COMPR EHENS MONSE METAB OLIC PANEL chloride 105 mmol/ L 98-107 Not Available [facility] (Lab) [address] [place], [address], 05/29/2021 14:33:00 05/29/20 21 05/29/2021 COMPR EHENS MONSE METAB OLIC PANEL agap 13.0 mmol/ L 14-22 low Not Available [facility] (Lab) [address] [place], [address], 05/29/2021 14:33:00 05/29/20 21 05/29/2021 COMPR EHENS MONSE METAB OLIC PANEL glucose 82 mg/dL 70-99 Not Available [facility] (Lab) [address] [place], [address], 05/29/2021 14:33:00 05/29/20 21 05/29/2021 COMPR EHENS MONSE METAB OLIC PANEL BUN 14 mg/dL 8-19 Not Available [facility] (Lab) [address] [place], [address], 05/29/2021 14:33:00 05/29/20 21 05/29/2021 COMPR EHENS MONSE METAB OLIC PANEL creatinine 0.62 mg/dL 0.66-1 .25 low Not Available [facility] (Lab) [address] [place] [address], [address], 05/29/2021 14:33:00 05/29/20 21 05/29/2021 COMPR EHENS MONSE METAB OLIC PANEL GFR >60 Refer ence Range : Morton ge GFR Healt hy Adult : >60 mL/mi n/1.7 3 m2 Chron ic Kidne y Disea se: 15-60 mL/mi n/1.7 3 m2 Kidne y Failu re: <15/m L/min /1.73 m2 www.n iddk. nih.g ov The MDRD study equat ion has not been valid ated in child alexei <18 years of age; pregn ant women ; the elder ly >85 years of age; or in some racia l or ethni c subgr oups, such as Hispa nics. Outsi de the valid ated mitchell eters , estim ated GFR is less accur ate, requi ring clini manolo judgm ent on a case- by-ca se basis . Clini manolo inter preta tion for other races and ages must be made by the clini brandon. The MDRD study equat ion has not been valid ated for the evalu ation of serum creat inine relat ed to nutri herminia l statu s or medic ation usage . For perso ns <18 years of age, a pedia tric GFR calcu lator is avail able on the [facility] websi te: https ://jovana w.kid don.o rg/pr ofess ional s/kdo qi/gf r_cal culat or Not Available [facility] (Lab) [address] [place], [address], 05/29/2021 14:33:00 05/29/20 21 05/29/2021 COMPR EHENS MONSE METAB OLIC PANEL alkaline phosphatase 56 U/L 38-126 Not Available [facility] (Lab) [address] [place], [address], 05/29/2021 14:33:00 05/29/20 21 05/29/2021 COMPR EHENS MONSE METAB OLIC PANEL alanine aminotransfe rase 14 U/L 0-35 Not Available [facility] (Lab) [address] [place], [address], 05/29/2021 14:33:00 05/29/20 21 05/29/2021 COMPR EHENS MONSE METAB OLIC PANEL aspartate aminotransfe rase 26 U/L 15-37 Not Available [facility] (Lab) [address] [place], [address], 05/29/2021 14:33:00 05/29/20 21 05/29/2021 COMPR EHENS MONSE METAB OLIC PANEL bilirubin, total 0.40 mg/dL 0.20-1 .30 Not Available [facility] (Lab) [address] [place], [address], 05/29/2021 14:33:00 05/29/20 21 05/29/2021 COMPR EHENS MONSE METAB OLIC PANEL calcium 9.7 mg/dL 8.4-10 .2 Not Available [facility] (Lab) [address] [place], [address], 05/29/2021 14:33:00 05/29/20 21 05/29/2021 COMPR EHENS MONSE METAB OLIC PANEL total protein 8.5 g/dL 6.3-8. 2 high Not Available [facility] (Lab) [address] [place], [address], 05/29/2021 14:33:00 05/29/20 21 05/29/2021 COMPR EHENS MONSE METAB OLIC PANEL albumin 5.1 g/dL 3.4-5. 0 high Not Available [facility] (Lab) [address] [place], [address], 05/29/2021 14:33:00 05/29/20 21 05/29/2021 COMPR EHENS MONSE METAB OLIC PANEL globulin 3.4 g/dL 2.6-4. 2 Not Available [facility] (Lab) [address] [place], [address], 05/29/2021 14:33:00 05/29/20 21 05/29/2021 COMPR EHENS MONSE METAB OLIC PANEL A/G ratio 1.5 ratio 1.0-2. 0 Not Available [facility] (Lab) [address] [place], [address], 05/29/2021 14:33:00 05/29/20 21 05/29/2021 CBC/C OMPLE TE BLD COUNT W/DIF F hematocrit 39.5 % 35.7-4 5.7 Not Available [facility] (Lab) [address] [place], [address], 05/29/2021 14:04:47 05/29/20 21 05/29/2021 CBC/C OMPLE TE BLD COUNT W/DIF F white blood cells 4.9 x10'3 /uL 4.2-10 .8 Not Available [facility] (Lab) [address] [place], [address], 05/29/2021 14:04:47 05/29/20 21 05/29/2021 CBC/C OMPLE TE BLD COUNT W/DIF F red blood cells 4.23 x10'6 /uL 3.80-5 .20 Not Available [facility] (Lab) [address] [place], [address], 05/29/2021 14:04:47 05/29/20 21 05/29/2021 CBC/C OMPLE TE BLD COUNT W/DIF F hemoglobin 12.6 g/dL 12.0-1 5.6 Not Available [facility] (Lab) [address] [place], [address], 05/29/2021 14:04:47 05/29/20 21 05/29/2021 CBC/C OMPLE TE BLD COUNT W/DIF F mean red cell volume 93.4 fL 82.0-9 9.0 Not Available [facility] (Lab) [address] [place], [address], 05/29/2021 14:04:47 05/29/20 21 05/29/2021 CBC/C OMPLE TE BLD COUNT W/DIF F mean red cell hemoglobin 29.8 pg 27.0-3 3.0 Not Available [facility] (Lab) [address] [place], [address], 05/29/2021 14:04:47 05/29/20 21 05/29/2021 CBC/C OMPLE TE BLD COUNT W/DIF F mean RBC HGB concentratio n 31.9 g/dL 31.0-3 6.0 Not Available [facility] (Lab) [address] [place], [address], 05/29/2021 14:04:47 05/29/20 21 05/29/2021 CBC/C OMPLE TE BLD COUNT W/DIF F red cell distribution width 16.2 % 11.8-1 5.5 high Not Available [facility] (Lab) [address] [place], [address], 05/29/2021 14:04:47 05/29/20 21 05/29/2021 CBC/C OMPLE TE BLD COUNT W/DIF F platelets 348 x10'3 /uL 150-40 0 Not Available [facility] (Lab) [address] [place], [address], 05/29/2021 14:04:47 05/29/20 21 05/29/2021 CBC/C OMPLE TE BLD COUNT W/DIF F mean platelet volume 10.4 fL 9.0-12 .4 Not Available [facility] (Lab) [address] [place], [address], 05/29/2021 14:04:47 05/29/20 21 05/29/2021 CBC/C OMPLE TE BLD COUNT W/DIF F neutrophils 55.6 % 39.0-7 2.0 Not Available [facility] (Lab) [address] [place], [address], 05/29/2021 14:04:47 05/29/20 21 05/29/2021 CBC/C OMPLE TE BLD COUNT W/DIF F lymphocytes 34.8 % 16.0-4 7.0 Not Available [facility] (Lab) [address] [place], [address], 05/29/2021 14:04:47 05/29/20 21 05/29/2021 CBC/C OMPLE TE BLD COUNT W/DIF F monocytes 5.7 % 5.0-12 .0 Not Available [facility] (Lab) [address] [facility], [address], 05/29/2021 14:04:47 05/29/20 21 05/29/2021 CBC/C OMPLE TE BLD COUNT W/DIF F eosinophils 2.9 % 1.0-7. 0 Not Available [facility] (Lab) [address] [place], [address], 05/29/2021 14:04:47 05/29/20 21 05/29/2021 CBC/C OMPLE TE BLD COUNT W/DIF F basophils 0.8 % 0.0-2. 0 Not Available [facility] (Lab) [address] [place], [address], 05/29/2021 14:04:47 05/29/20 21 05/29/2021 CBC/C OMPLE TE BLD COUNT W/DIF F immature granulocytes 0.2 % 0.00-0 .50 Not Available [facility] (Lab) [address] [place], [address], 05/29/2021 14:04:47 05/29/20 21 05/29/2021 CBC/C OMPLE TE BLD COUNT W/DIF F neutrophils, absolute count 2.71 x10'3 /uL 1.5-8. 0 Not Available [facility] (Lab) [address] [place], [address], 05/29/2021 14:04:47 05/29/20 21 05/29/2021 CBC/C OMPLE TE BLD COUNT W/DIF F lymphocytes, absolute count 1.70 x10'3 /uL 1.07-3 .43 Not Available [facility] (Lab) [address] [place], [address], 05/29/2021 14:04:47 05/29/20 21 05/29/2021 CBC/C OMPLE TE BLD COUNT W/DIF F monocytes, absolute count 0.28 x10'3 /uL 0.29-0 .99 low Not Available [facility] (Lab) [address] [place], [address], 05/29/2021 14:04:47 05/29/20 21 05/29/2021 CBC/C OMPLE TE BLD COUNT W/DIF F eosinophils, absolute count 0.14 x10'3 /uL 0.02-0 .53 Not Available [facility] (Lab) [address] [place], [address], 05/29/2021 14:04:47 05/29/20 21 05/29/2021 CBC/C OMPLE TE BLD COUNT W/DIF F basophils, absolute count 0.04 x10'3 /uL 0.01-0 .08 Not Available [facility] (Lab) [address] [place], [address], 05/29/2021 14:04:47 05/29/20 21 05/29/2021 CBC/C OMPLE TE BLD COUNT W/DIF F immature granulocytes ,absolute 0.01 x10'3 /uL 0.00-0 .05 Not Available [facility] (Lab) [address] [place], [address], 05/29/2021 14:04:47 05/29/20 21 05/29/2021 CBC/C OMPLE TE BLD COUNT W/DIF F nucleated red blood cells 0.0 % -0 Not Available [facility] (Lab) [address] [place], [address], 05/29/2021 14:04:47 05/29/20 21 05/29/2021 CBC/C OMPLE TE BLD COUNT W/DIF F NRBC# 0.00 x10'3 /uL Not Available [facility] (Lab) [address] [place], [address], 05/29/2021 14:04:47 12/05/19 23 12/04/2022 IRON/ TIBC PANEL total iron binding capacity 374 mcg/d L 265-47 5 Not Available [facility] (Lab) [address] [place], [address], 12/04/2022 20:19:37 12/05/19 23 12/04/2022 IRON/ TIBC PANEL % transferrin saturation 58 % 20-55 high Not Available [facility] (Lab) [address] [place], [address], 12/04/2022 20:19:37 12/05/19 23 12/04/2022 IRON/ TIBC PANEL unsaturated iron bind capacity 156 mcg/d L 126-38 2 Not Available [facility] (Lab) [address] [place], [address], 12/04/2022 20:19:37 12/05/19 23 12/04/2022 IRON/ TIBC PANEL iron 218 mcg/d L 42-175 high Not Available [facility] (Lab) [address] [place], [address], 12/04/2022 20:19:37 12/05/19 23 12/04/2022 CBC/C OMPLE TE BLD COUNT W/DIF F white blood cells 6.3 x10'3 /uL 4.2-10 .8 Not Available [facility] (Lab) [address] [place], [address], 12/04/2022 19:34:15 12/05/19 23 12/04/2022 CBC/C OMPLE TE BLD COUNT W/DIF F red blood cells 4.06 x10'6 /uL 3.80-5 .20 Not Available [facility] (Lab) [address] [place], [address], 12/04/2022 19:34:15 12/05/19 23 12/04/2022 CBC/C OMPLE TE BLD COUNT W/DIF F hemoglobin 12.7 g/dL 12.0-1 5.6 Not Available [facility] (Lab) [address] [place], [address], 12/04/2022 19:34:15 12/05/1912/04/2022 CBC/C OMPLE TE BLD COUNT W/DIF F hematocrit 39.2 % 35.7-4 5.7 Not Available [facility] (Lab) [address] [place], [address], 12/04/2022 19:34:15 12/05/1912/04/2022 CBC/C OMPLE TE BLD COUNT W/DIF F mean red cell volume 96.6 fL 82.0-9 9.0 Not Available [facility] (Lab) [address] [place], [address], 12/04/2022 19:34:15 12/05/1912/04/2022 CBC/C OMPLE TE BLD COUNT W/DIF F mean red cell hemoglobin 31.3 pg 27.0-3 3.0 Not Available [facility] (Lab) [address] [place], [address], 12/04/2022 19:34:15 12/05/1912/04/2022 CBC/C OMPLE TE BLD COUNT W/DIF F mean RBC HGB concentratio n 32.4 g/dL 31.0-3 6.0 Not Available [facility] (Lab) [address] [place], [address], 12/04/2022 19:34:15 12/05/19 23 12/04/2022 CBC/C OMPLE TE BLD COUNT W/DIF F red cell distribution width 14.2 % 11.8-1 5.5 Not Available [facility] (Lab) [address] [place], [address], 12/04/2022 19:34:15 12/05/19 23 12/04/2022 CBC/C OMPLE TE BLD COUNT W/DIF F platelets 321 x10'3 /uL 150-40 0 Not Available [facility] (Lab) [address] [place], [address], 12/04/2022 19:34:15 12/05/19 23 12/04/2022 CBC/C OMPLE TE BLD COUNT W/DIF F mean platelet volume 10.7 fL 9.0-12 .4 Not Available [facility] (Lab) [address] [place], [address], 12/04/2022 19:34:15 12/05/19 23 12/04/2022 CBC/C OMPLE TE BLD COUNT W/DIF F neutrophils 69.7 % 39.0-7 2.0 Not Available [facility] (Lab) [address] [place], [address], 12/04/2022 19:34:15 12/05/19 23 12/04/2022 CBC/C OMPLE TE BLD COUNT W/DIF F lymphocytes 23.4 % 16.0-4 7.0 Not Available [facility] (Lab) [address] [place], [address], 12/04/2022 19:34:15 12/05/1912/04/2022 CBC/C OMPLE TE BLD COUNT W/DIF F monocytes 4.3 % 5.0-12 .0 low Not Available [facility] (Lab) [address] [place], [address], 12/04/2022 19:34:15 12/05/19 23 12/04/2022 CBC/C OMPLE TE BLD COUNT W/DIF F eosinophils 1.8 % 1.0-7. 0 Not Available [facility] (Lab) [address] [place], [address], 12/04/2022 19:34:15 12/05/19 23 12/04/2022 CBC/C OMPLE TE BLD COUNT W/DIF F basophils 0.5 % 0.0-2. 0 Not Available [facility] (Lab) [address] [place], [address], 12/04/2022 19:34:15 12/05/19 23 12/04/2022 CBC/C OMPLE TE BLD COUNT W/DIF F immature granulocytes 0.3 % 0.00-0 .50 Not Available [facility] (Lab) [address] [place], [address], 12/04/2022 19:34:15 12/05/19 23 12/04/2022 CBC/C OMPLE TE BLD COUNT W/DIF F neutrophils, absolute count 4.37 x10'3 /uL 1.5-8. 0 Not Available [facility] (Lab) [address] [place], [address], 12/04/2022 19:34:15 12/05/19 23 12/04/2022 CBC/C OMPLE TE BLD COUNT W/DIF F lymphocytes, absolute count 1.47 x10'3 /uL 1.07-3 .43 Not Available [facility] (Lab) [address] [place], [address], 12/04/2022 19:34:15 12/05/19 23 12/04/2022 CBC/C OMPLE TE BLD COUNT W/DIF F monocytes, absolute count 0.27 x10'3 /uL 0.29-0 .99 low Not Available [facility] (Lab) [address] [place], [address], 12/04/2022 19:34:15 12/05/19 23 12/04/2022 CBC/C OMPLE TE BLD COUNT W/DIF F eosinophils, absolute count 0.11 x10'3 /uL 0.02-0 .53 Not Available [facility] (Lab) [address] [place], [address], 12/04/2022 19:34:15 12/05/19 23 12/04/2022 CBC/C OMPLE TE BLD COUNT W/DIF F basophils, absolute count 0.03 x10'3 /uL 0.01-0 .08 Not Available [facility] (Lab) [address] [place], [address], 12/04/2022 19:34:15 12/05/19 23 12/04/2022 CBC/C OMPLE TE BLD COUNT W/DIF F immature granulocytes ,absolute 0.02 x10'3 /uL 0.00-0 .05 Not Available [facility] (Lab) [address] [place], [address], 12/04/2022 19:34:15 12/05/19 23 12/04/2022 CBC/C OMPLE TE BLD COUNT W/DIF F nucleated red blood cells 0.0 % -0 Not Available [facility] (Lab) [address] [place], [address], 12/04/2022 19:34:15 12/05/19 23 12/04/2022 CBC/C OMPLE TE BLD COUNT W/DIF F NRBC# 0.00 x10'3 /uL Not Available [facility] (Lab) [address] [place], [address], 12/04/2022 19:34:15 12/05/19 23 12/04/2022 COMPR EHENS MONSE METAB OLIC PANEL sodium 137 mmol/ L 137-14 5 Not Available [facility] (Lab) [address] [place], [address], 12/04/2022 19:34:47 12/05/19 23 12/04/2022 COMPR EHENS MONSE METAB OLIC PANEL potassium 3.4 mmol/ L 3.5-5. 1 low Not Available [facility] (Lab) [address] [place], [address], 12/04/2022 19:34:47 12/05/19 23 12/04/2022 COMPR EHENS MONSE METAB OLIC PANEL chloride 104 mmol/ L 98-107 Not Available [facility] (Lab) [address] [place], [address], 12/04/2022 19:34:47 12/05/19 23 12/04/2022 COMPR EHENS MONSE METAB OLIC PANEL carbon dioxide 21 mmol/ L 22-30 low Not Available [facility] (Lab) [address] [place], [address], 12/04/2022 19:34:47 12/05/19 23 12/04/2022 COMPR EHENS MONSE METAB OLIC PANEL anion gap 15.4 mmol/ L 14-22 Not Available [facility] (Lab) [address] [place], [address], 12/04/2022 19:34:47 12/05/19 23 12/04/2022 COMPR EHENS MONSE METAB OLIC PANEL glucose 87 mg/dL 70-99 Not Available [facility] (Lab) [address] [place], [address], 12/04/2022 19:34:47 12/05/19 23 12/04/2022 COMPR EHENS MONSE METAB OLIC PANEL BUN 13 mg/dL 8-19 Not Available [facility] (Lab) [address] [place], [address], 12/04/2022 19:34:47 06/12/04/2022 COMPR EHENS MONSE METAB OLIC PANEL creatinine 0.67 mg/dL 0.66-1 .25 Not Available [facility] (Lab) [address] [place], [address], 12/04/2022 19:34:47 12/05/19 23 12/04/2022 COMPR EHENS MONSE METAB OLIC PANEL GFR >60 Refer ence Range : Morton ge GFR Healt hy Adult : >60 mL/mi n/1.7 3 m2 Chron ic Kidne y Disea se: 15-60 mL/mi n/1.7 3 m2 Kidne y Failu re: <15/m L/min /1.73 m2 www.n iddk. nih.g ov The MDRD study equat ion has not been valid ated in child alexei <18 years of age; pregn ant women ; the elder ly >85 years of age; or in some racia l or ethni c subgr oups, such as Hissc nics. Outsi de the valid ated mitchell eters , estim ated GFR is less accur ate, requi ring clini manolo judgm ent on a case- by-ca se basis . Clini manolo inter preta tion for other races and ages must be made by the clini brandon. The MDRD study equat ion has not been valid ated for the evalu ation of serum creat inine relat ed to nutri herminia l statu s or medic ation usage . For perso ns <18 years of age, a pedia tric GFR calcu lator is avail able on the [facility] websi te: https ://ww w.kid don.o rg/pr ofess ional s/kdo qi/gf r_cal culat or Not Available [facility] (Lab) [address] [place], [address], 12/04/2022 19:34:47 12/05/1912/04/2022 COMPR EHENS MONSE METAB OLIC PANEL alkaline phosphatase 53 U/L 38-126 Not Available [facility] (Lab) [address] [place], [address], 12/04/2022 19:34:47 12/05/19 23 12/04/2022 COMPR EHENS MONES METAB OLIC PANEL alanine aminotransfe rase 18 U/L 0-35 Not Available [facility] (Lab) [address] [place], [address], 12/04/2022 19:34:47 12/05/19 23 12/04/2022 COMPR EHENS MONSE METAB OLIC PANEL aspartate aminotransfe rase 50 U/L 15-37 high Not Available [facility] (Lab) [address] [place], [address], 12/04/2022 19:34:47 12/05/19 23 12/04/2022 COMPR EHENS MONSE METAB OLIC PANEL bilirubin, total 0.80 mg/dL 0.20-1 .30 Not Available [facility] (Lab) [address] [place], [address], 12/04/2022 19:34:47 12/05/19 23 12/04/2022 COMPR EHENS MONSE METAB OLIC PANEL calcium 9.1 mg/dL 8.4-10 .2 Not Available [facility] (Lab) [address] [place], [address], 12/04/2022 19:34:47 12/05/19 23 12/04/2022 COMPR EHENS MONSE METAB OLIC PANEL total protein 8.2 g/dL 6.3-8. 2 Not Available [facility] (Lab) [address] [place], [address], 12/04/2022 19:34:47 12/05/19 23 12/04/2022 COMPR EHENS MONSE METAB OLIC PANEL albumin 4.5 g/dL 3.4-5. 0 Not Available [facility] (Lab) [address] [place], [address], 12/04/2022 19:34:47 12/05/19 23 12/04/2022 COMPR EHENS MONSE METAB OLIC PANEL globulin 3.7 g/dL 2.6-4. 2 Not Available [facility] (Lab) [address] [place], [address], 12/04/2022 19:34:47 12/05/19 23 12/04/2022 COMPR EHENS MONSE METAB OLIC PANEL A/G ratio 1.2 ratio 1.0-2. 0 Not Available [facility] (Lab) [address] [place], [address], 12/04/2022 19:34:47 12/05/19 23 12/04/2022 LIPID PANEL cholesterol 216 mg/dL 140-19 9 high NIH YOLANDE NSUS RECOM MENDA TION FOR RICK STERO L: ADULT CHILD LOW RISK: <200 <170 BORDE RLINE : <200- 239 ----- HIGH RISK: >240 >200 Not Available [facility] (Lab) [address] [place], [address], 12/04/2022 19:34:53 12/05/19 23 12/04/2022 LIPID PANEL triglyceride s 55 mg/dL 0-150 NIH YOLANDE NSUS REPOR T RECOM MENDA TION FOR TRIGL YCERI KARIN: ADULT CHILD LOW RISK: <150 ----- BODER LINE: 150-1 99 ----- HIGH RISK: >200 ----- Not Available [facility] (Lab) [address] [place], [address], 12/04/2022 19:34:53 12/05/19 23 12/04/2022 LIPID PANEL HDL cholesterol 105 mg/dL 40- Not Available [facility] (Lab) [address] [place], [address], 12/04/2022 19:34:53 12/05/19 23 12/04/2022 LIPID PANEL LDL cholesterol, calculated 100 mg/dL 0-130 [facility] YOLANDE NSUS REPOR T RECOM MENDA TIONS FOR LDL: ADULT CHILD LOW RISK <130 <110 (OPTI MAL LDL) <100 ----- BORDE RLINE : 130-1 59 ----- HIGH RISK: >160 >130 A TRIGL YCERI DE RESUL T >400 INVAL IDATE S THE CALCU LATIO N FOR LDL FRACT IONAT ION - THE LDL RESUL T WILL NOT BE REPOR [place]. Not Available [facility] (Lab) [address] [place], [address], 12/04/2022 19:34:53 12/05/19 23 12/04/2022 VITAM IN D 25-HY DROXY vd25oh <12.8 NG/mL 30-100 low Vitam in D Statu s: Defic ient: <20 ng/mL Insuf ficie nt: 20-29 ng/mL Suffi cient : 30-10 0 ng/mL Not Available [facility] (Lab) [address] [place], [address], 12/04/2022 20:16:39 12/05/19 23 12/04/2022 ROME TIN ferritin 14 NG/mL 6.24-1 37 Not Available [facility] (Lab) [address] [place], [address], 12/04/2022 20:26:54 12/05/19 23 12/04/2022 HEMOG LOBIN A1C HA1C 5.6 % 4.0-6. 0 Diabe angelito Scree cinthia Crite madeleine: <5.7% Consi stent with absen ce of diabe angelito 5.7-6 .4% Consi stent with incre ased risk for diabe angelito (pred iabet es) >OR=6 .5% Consi stent with diabe angelito REFER ENCE: Diabe angelito Care 2016, 39([facility]de ppl.1 ):s13 -s22 Not Available [facility] (Lab) [address] [place], [address], 12/04/2022 21:18:11 12/05/19 23 12/04/2022 VITAM IN B12 (LOVE TRISH ) vb12 373 pg/mL 239-93 1 Not Available [facility] (Lab) [address] [place], [address], 12/04/2022 21:22:52 12/05/19 23 12/04/2022 FOLAT E, SERUM /PLAS MA folate 11.0 NG/mL 2.76-2 0.0 Not Available [facility] (Lab) [address] [place], [address], 12/04/2022 21:22:59 01/02/20 23 01/01/2023 POTAS SIUM potassium 4.9 mmol/ L 3.5-5. 1 Not Available [facility] (Lab) [address] [place], [address], 01/01/2023 19:24:27 01/02/20 23 01/01/2023 GGT/G -GLUT AMYL TRANS FERAS E gamma-glutam yl transferase 31 U/L 12-43 Not Available [facility] (Lab) [address] [place], [address], 01/01/2023 19:24:30 01/02/20 23 01/01/2023 HEPAT IC/LI KATRINA PANEL alkaline phosphatase 58 U/L 38-126 Not Available [facility] (Lab) [address] [place], [address], 01/01/2023 19:24:36 01/02/20 23 01/01/2023 HEPAT IC/LI KATRINA PANEL alanine aminotransfe rase 19 U/L 0-35 Not Available [facility] (Lab) [address] [place], [address], 01/01/2023 19:24:36 01/02/20 23 01/01/2023 HEPAT IC/LI KATRINA PANEL aspartate aminotransfe rase 31 U/L 15-37 Not Available [facility] (Lab) [address] [place], [address], 01/01/2023 19:24:36 01/02/20 23 01/01/2023 HEPAT IC/LI KATRINA PANEL bilirubin, total 0.50 mg/dL 0.20-1 .30 Not Available [facility] (Lab) [address] [place], [address], 01/01/2023 19:24:36 01/02/20 23 01/01/2023 HEPAT IC/LI KATRINA PANEL bilirubin, conjugated (direct) 0.00 mg/dL 0.00-0 .30 Not Available [facility] (Lab) [address] [place], [address], 01/01/2023 19:24:36 01/02/20 23 01/01/2023 HEPAT IC/LI KATRINA PANEL biliurubin,u ncong. (indirect) 0.40 mg/dL 0.00-1 .1 Not Available [facility] (Lab) [address] [place], [address], 01/01/2023 19:24:36 01/02/20 23 01/01/2023 HEPAT IC/LI KATRINA PANEL total protein 7.7 g/dL 6.3-8. 2 Not Available [facility] (Lab) [address] [place], [address], 01/01/2023 19:24:36 01/02/20 23 01/01/2023 HEPAT IC/LI KATRINA PANEL albumin 4.4 g/dL 3.4-5. 0 Not Available [facility] (Lab) [address] [place], [address], 01/01/2023 19:24:36 01/02/20 23 01/01/2023 HEPAT IC/LI KATRINA PANEL globulin 3.3 g/dL 2.6-4. 2 Not Available [facility] (Lab) [address] [place], [address], 01/01/2023 19:24:36 01/02/20 23 01/01/2023 HEPAT IC/LI KATRINA PANEL A/G ratio 1.3 ratio 1.0-2. 0 Not Available [facility] (Lab) [address] [place], [address], 01/01/2023 19:24:36 01/02/20 23 01/01/2023 HEPAT ITIS ACUTE PANEL hepatitis A IgM antibody NON-RE ACTIVE non-re active For sampl es repor kelton as Borde rline React monse for HAV IgM, it is recom wallace d a new speci men be obtai ezekiel in 2 weeks and retes kelton. Not Available [facility] (Lab) [address] [place], [address], 01/01/2023 20:14:46 01/02/20 23 01/01/2023 HEPAT ITIS ACUTE PANEL hepatitis A virus signal/cutof 0.01 0.00-0 .79 Not Available [facility] (Lab) [address] [place], [address], 01/01/2023 20:14:46 01/02/20 23 01/01/2023 HEPAT ITIS ACUTE PANEL hepatitis B core IgM antibody NON-RE ACTIVE non-re active Not Available [facility] (Lab) [address] [place], [address], 01/01/2023 20:14:46 01/02/20 23 01/01/2023 HEPAT ITIS ACUTE PANEL HBV core IgM signal/cutof f 0.03 0.00-1 .10 Not Available [facility] (Lab) [address] [place], [address], 01/01/2023 20:14:46 01/02/20 23 01/01/2023 HEPAT ITIS ACUTE PANEL hepatitis B surface antigen NON-RE ACTIVE non-re active All speci mens react monse for Hepat itis B Surfa ce Antig en will refle x to refer ral lab confi rmato ry testi ng. Not Available [facility] (Lab) [address] [place], [address], 01/01/2023 20:14:46 01/02/20 23 01/01/2023 HEPAT ITIS ACUTE PANEL HBV surf.antigen signal/cutof f 0.04 0.00-0 .99 Not Available [facility] (Lab) [address] [place], [address], 01/01/2023 20:14:46 01/02/20 23 01/01/2023 HEPAT ITIS ACUTE PANEL hepatitis C antibody NON-RE ACTIVE non-re active All speci mens react monse for Hepat itis C Virus antib tamiko will refle x to PCR confi rmato ry testi ng. Pleas e allow 48-72 hours for resul ts. Not Available [facility] (Lab) [address] [place], [address], 01/01/2023 20:14:46 01/02/20 23 01/01/2023 HEPAT ITIS ACUTE PANEL hepatitis C virus signal/cutof 0.01 0.00-0 .99 Not Available [facility] (Lab) [address] [place], [address], 01/01/2023 20:14:46 08/19/19 23 08/19/2022 XR, ankle No observ ation record ed. [id number], [address], 08/21/2022 23:37:51 12/17/19 24 12/17/2023 CT, head + brain , w/o contr ast No observ ation record ed. [address], [address], 12/22/2023 08:34:30 12/17/19 24 12/17/2023 CT, cervi manolo spine , w/o contr ast No observ ation record ed. [address], [address], 12/22/2023 08:35:23 Result Notes None recorded. Problems Name Problem SNOMED Code Status Onset Date Resolution Date Notes Provider Name and Address Organization Details Recorded Time Vitamin D deficiency 68126211 Active 2022 Not Available [facility] 3 04:06:01 Cobalamin deficiency 330674839 Active 2022 Not Available [facility] 3 04:06:01 Anemia 027232417 Active 2022 Not Available [facility] 3 04:06:01 Mixed anxiety and depressive disorder 854762194 Active 2022 Not Available [facility] 3 04:06:01 Eruption 812476725 Active 2022 Not Available [facility] 3 04:06:01 Herpesvirus infection 16130708 Active 2022 Not Available [facility] 3 04:06:01 Hypokalemia 54172803 Active 2022 Not Available [facility] 3 04:06:02 Liver enzymes level above reference range 972683670 Active 2022 Not Available [facility] 3 04:06:02 Problem Notes None recorded. Medical Equipment None Reported. Allergies No known drug allergies Medications Name Sig Start Date Stop Date Status Note LastModified by Organization Details LastModified Time fluconazole 150 mg tablet TAKE 1 TABLET BY MOUTH 1 TIME FOR 1 DAY 12/04 completed Not Available Not Available Not Available valacyclovi r 1 gram tablet TAKE 1 TABLET BY MOUTH EVERY DAY 2022 active Not Available Not Available Not Avai lable metronidazo le 0.75 % (37.5 mg/5 gram) vaginal gel APPLY 1 APPLICATO RFULL VAGINALLY EVERY NIGHT AT BEDTIME FOR 5 DAYS 12/04 completed Not Available Not Available Not Available cyanocobala min (vit B-12) 1,000 mcg tablet Take 1 tablet every day by oral route. 12/04 completed Not Available Not Available Not Available metronidazo le 500 mg tablet Take 1 tablet twice a day by oral route for 7 days. active Not Available Not Available No t Available sulfamethox azole 800 mg-trimetho prim 160 mg tablet TAKE 1 TABLET BY MOUTH TWICE DAILY FOR 10 DAYS 03/12 completed Not Available Not Available Not Available triamcinolo ne acetonide 0.1 % topical cream APPLY A THIN LAYER TOPICALLY TO AFFECTED AREA TWICE A DAY NEEDED active Not Available Not Available No t Available clindamycin 1 % topical gel APPLY THIN LAYER TOPICALLY TO THE AFFECTED AREA TWICE DAILY NEEDED 12/04 completed Not Available Not Available Not Available cyanocobala min (vit B-12) 500 mcg tablet Take 1 tablet every day by oral route. 2022 active Not Available Not Available Not Avai lable cephalexin 500 mg capsule TAKE 1 CAPSULE BY MOUTH EVERY 6 HOURS FOR 5 DAYS 12/04 completed Not Available Not Available Not Available ergocalcife rol (vitamin D2) 1,250 mcg (50,000 unit) capsule Take 1 capsule every week by oral route. 2022 active Not Available Not Available Not Avai lable ketoconazol e 2 % topical cream APPLY TOPICALLY TO AFFECTED AREA EVERY DAY NEEDED active Not Available Not Available No t Available amoxicillin 875 mg-potassiu m clavulanate 125 mg tablet TAKE 1 TABLET BY MOUTH TWICE DAILY FOR 7 DAYS 12/04 completed Not Available Not Available Not Available escitalopra m 10 mg tablet TAKE 1 TABLET BY MOUTH EVERY DAY 2022 active Not Available Not Available Not Avai lable FeroSul 325 mg (65 mg iron) tablet TAKE 1 TABLET BY MOUTH EVERY DAY 12/04 completed Not Available Not Available Not Available lidocaine 5 % topical ointment APPLY EXTERNALL Y TO THE AFFECTED AREA THREE TIMES DAILY 03/12 completed Not Available Not Available Not Available Vienva 0.1 mg-20 mcg tablet TAKE 1 TABLET BY MOUTH EVERY DAY 12/04 completed Not Available Not Available Not Available Vitals Date Recorded Body mass index (BMI) Body height Heart rate Body temperature Body weight Systolic And Diastolic Provider Name and Address Organization Details Last Updated DateTime 2 23 kg/m2 162.56 cm 72 /min 97.2 [degF] 45010.3 8 g 124/60 mm[Hg] Not Available [facility] 3 23:35:53 Date Recorded Body weight Body mass index (BMI) Body height Body temperature Heart rate Oxygen saturation Oxygen saturation in Arterial blood by Pulse oximetry Systolic And Diastolic Provider Name and Address Organization Details Last Updated DateTime 3 74057.8 6 g 25.7 kg/m2 162.56 cm 98.1 [degF] 94 /min 98 % 98 % 122/74 mm[Hg] Georgia Carr, [facility] 20x[address] [facility] 3 12:21:39 Date Recorded Body height Body mass index (BMI) Body weight Body temperature Heart rate Oxygen saturation Oxygen saturation in Arterial blood by Pulse oximetry Systolic And Diastolic Provider Name and Address Organization Details Last Updated DateTime 3 162.56 cm 25.7 kg/m2 79510.8 6 g 97.8 [degF] 80 /min 98 % 98 % 116/72 mm[Hg] Georgia Carr, [facility] [address] [facility] 3 12:46:35 Date Recorded Body mass index (BMI) Body height Oxygen saturation Oxygen saturation in Arterial blood by Pulse oximetry Heart rate Body temperature Body weight Systolic And Diastolic Provider Name and Address Organization Details Last Updated DateTime 1 22.3 kg/m2 162.56 cm 98 % 98 % 94 /min 97.6 [degF] 70193.0 1 g 110/60 mm[Hg] Not Available [facility] 3 23:35:53 Date Recorded Body mass index (BMI) Body height Oxygen saturation Oxygen saturation in Arterial blood by Pulse oximetry Heart rate Body temperature Body weight Systolic And Diastolic Provider Name and Address Organization Details Last Updated DateTime 1 22.7 kg/m2 162.56 cm 98 % 98 % 92 /min 97.5 [degF] 91307.1 9 g 116/64 mm[Hg] Not Available [facility] 3 23:35:53 Social History Question Answer Notes LastModified by Organizat ion Details LastModified Time Tobacco Smoking Status Never Smoker Not Available [facility] 08/21/2022 23:35:12 Do You Have An Advance Directive? No [id number] Information not available 08/21/2022 What Is Your Level Of Caffeine Consumption? None MIGRATION.[id number] [id number] Information not available 08/21/2022 What Is Your Code Status? Full Code [id number] Information not available 08/21/2022 In The 14 Days Before Symptom Onset, Have You Had Close Contact With A Laboratory-confir med COVID-19 While That Case Was Ill? No MIGRATION.[id number] Information not available 08/21/2022 In The 14 Days Before Symptom Onset, Have You Had Close Contact With A Person Who Is Under Investigation For COVID-19 While That Person Was Ill? No MIGRATION.32337 01281 Information not available 08/21/2022 What Type Of Diet Are You Following? REGULAR MIGRATION.17881 [id number] Information not available 08/21/2022 Which Illicit Or Recreational Drugs Have You Used? THC MIGRATION.03695 46287 Information not available 08/21/2022 What Is The Highest Grade Or Level Of School You Have Completed Or The Highest Degree You Have Received? [id number] MIGRATION.31903 38596 Information not available 08/21/2022 Have There Been Any Changes To Your Family Or Social Situation? No MIGRATION.24115 12305 Information not available 08/21/2022 What Is The Fluoride Status Of Your Home? Unknown MIGRATION.11017 21310 Information not available 08/21/2022 Are There Any Guns Present In Your Home? No MIGRATION.59834 98579 Information not available 08/21/2022 Do You Use Insect Repellent Routinely? No MIGRATION.80714 62993 Information not available 08/21/2022 Where Do You Live? Apartment MIGRATION.12360 44214 Information not available 08/21/2022 Do You Have A Medical Power Of Computer Hardware Developer? No MIGRATION.88287 14502 Information not available 08/21/2022 What Was The Date Of Your Most Recent Tobacco Screening? 01/01/2023 [email or web address] Information not available 01/01/2023 Have You Ever Been Counseled For Unhealthy Alcohol Use? No MIGRATION.66942 38245 Information not available 08/21/2022 Do You Have Any Pets? No MIGRATION.09906 81395 Information not available 08/21/2022 What Is Your Relationship Status? Single MIGRATION.43999 37788 Information not available 08/21/2022 Do You Use Your Seat Belt Or Car Seat Routinely? Yes MIGRATION.15374 42648 Information not available 08/21/2022 Do You Have Smoke And Carbon Monoxide Detectors In Your Home? Yes MIGRATION.62585 79887 Information not available 08/21/2022 Are You Passively Exposed To Smoke? No MIGRATION.81500 97575 Information not available 08/21/2022 Are There Any Smokers In Your House? No MIGRATION.89544 27693 Information not available 08/21/2022 Do You Use Sunscreen Routinely? No MIGRATION.12410 40845 Information not available 08/21/2022 Has Tobacco Cessation Counseling Been Provided? No Not Needed-nev er Smoked MIGRATION.83759 79993 Information not available 08/21/2022 Have You Recently Traveled Abroad? No MIGRATION.17872 52438 Information not available 08/21/2022 Have You Used IV Drugs? No MIGRATION.25429 08186 Information not available 08/21/2022 Do You Have Any Dietary Restrictions? No MIGRATION.12775 73590 Information not available 08/21/2022 Sex: Female Functional Status Question Answer Note LastModified by Organizat ion Details LastModified Time Do you use any illicit or recreational drugs? Yes MIGRATION.[id number] 026 Information not available 08/21/2022 Do you or have you ever used any other forms of tobacco or nicotine? No MIGRATION.1445145 026 Information not available 08/21/2022 What is your level of alcohol consumption? Occasional MIGRATION.7196395 026 Information not available 08/21/2022 What is your occupation? [employer] MIGRATION.0870028 026 Information not available 08/21/2022 What is your exercise level? None MIGRATION.[id number] 026 Information not available 08/21/2022 Mental Status Question Answer Note LastModified by Organizat ion Details LastModified Time Do you feel stressed (tense, restless, nervous, or anxious, or unable to sleep at night)? [id number] [id number].[id number] Information not available 08/21/2022 Family History Relationship Description Onset Age of this Age Resolved Age Notes LastModified by Organization Details LastModified Time Maternal Grandmother Diabetes mellitus [id number] Not available 08/21/2022 23:35:47 Medical History Condition Response NERVE DISEASE N BLINDNESS N RHEUMATIC FEVER N KIDNEY STONES N BLADDER PROBLEMS N MRSA N OTHER # 1 Y POLIO N LUNG DISEASE/DISORDER N HISTORY OF DRUG ABUSE N COPD N RADIATION / CHEMOTHERAPY N Other # 2 N BLOOD DISEASES N EAR OR HEARING PROBLEMS N MUMPS N SHINGLES N BOWEL PROBLEMS N DEPRESSION (INCLUDING POST ) N STROKE/TIA N ULCERS N BENIGN PROSTATIC HYPERPLASIA N MEASLES N HYPOTENSION N MYOCARDIAL INFARCTION N OBESITY N GERD/NAUSEA N ANEURYSM N URINARY/BLADDER/KIDNEY PROBLEMS N CORONARY ARTERY DISEASE (CAD) N ADDICTION CONCERNS N ENDOMETRIOSIS N Impotence N USE OF BLOOD THINNERS N SKIN PROBLEMS N GASTROINTESTINAL DISORDER N PERIPHERAL VASCULAR DISEASE N MUSCLE,JOINT OR BONE PROBLEMS N GASTROINTESTINAL BLEEDING N BLOOD CLOTS N ASTHMA N CATARACTS N ERECTILE DYSFUNCTION N VARICOSITIES N GI PROBLEMS N Low Testosterone N INFERTILITY N AIDS/HIV N CHEMOTHERAPY / RADIATION N LIVER DISEASE N MALE HYPOGONADISM N HYPERTENSION N Deficiency N TOURETTE'S N ANXIETY DISORDER N BLOOD TRANSFUSION N ANEMIA/BLOOD DISORDER Y CHRONIC EAR INFECTIONS N BRONCHITIS N TUBERCULOSIS N GLAUCOMA N FOOT PROBLEM N DIVERTICULITIS N CHICKENPOX N SLEEP APNEA N INFECTIOUS DISEASE N HEART ARRHYTHMIA N PROSTATE N INSOMNIA N HIGH CHOLESTEROL / HYPERLIPIDEMIA N HYPERTHYROIDISM N EYE PROBLEMS N EDEMA N CHRONIC PAIN SYNDROME N HYPOTHYROIDISM N CAROTID BLOCKAGE N CONSTIPATION N BACK / NECK PROBLEMS N ATHEROSCLEROSIS N BREAST PROBLEMS N DIALYSIS N ECZEMA N OSTEOPOROSIS N ARTHRITIS N APPENDICITIS N DIABETES, TYPE N BAD TEETH N ENT N HEARTBURN / REFLUX N AUTISM SPECTRUM DISORDER (ASD) N HEPATITIS / LIVER DISEASE N GOUT N SLEEP DISORDER N ALZHEIMER'S DISEASE N Brain Problems N HERPES N DEMENTIA N HEADACHES/MIGRAINES N SEIZURES/EPILEPSY N VASCULAR DISEASE N PACEMAKER N Blood Disorder N DIZZINESS N HEART DISEASE/HEART PROBLEMS N KIDNEY DISEASE N MULTIPLE SCLEROSIS N CARDIAC ARRHYTHMIA N CANCER: SPECIFY N ATRIAL FIBRILLATION N Gall Stones N PULMONARY EMBOLISM N AUTOIMMUNE DISEASE N Gynecological HistoryNo gynecological history recorded. Obstetrics History GPAL:G 0 P 0 0 0 0 Past Encounters Encounter ID Performer Location Encounter Start Date Encounter Closed Date Diagnosis/Indication Diagnosis SNOMED-CT Code Diagnosis ICD10 Code Diagnosis IMO Codes Diagnosis Note [id number] MD GRICELDA Bruce_[facility] Internal Med [facility] 15 [address] [facility], [address] [address] 03/12/2021 00:00:00 03/12/2021 13:29:24 [id number] MD GIRCELDA Bruce_[place] [facility] [address] [facility] [address] [address] 03/26/2021 00:00:00 03/26/2021 15:20:55 [id number] MD GRICELDA Bruce_[facility] Internal Med [facility] 15 [address] [facility] [address] [place] [address] 05/29/2021 00:00:00 05/29/2021 16:27:39 [id number] Buck Winslow MD [facility] Internal Med [facility] [address] [place] [address] [place] [address] 06/28/2021 00:00:00 06/28/2021 21:37:14 [id number] Sharee hernández MD [facility] Internal Med [facility] [place] [address] [place] [address] [place] [address] 12/04/2022 12:06:13 12/04/2022 12:32:36 Vitamin D deficiency 13577253 E55.9 Not currently on supplement , check labs Cobalamin deficiency 190 282204 E53.8 Not currently on supplement , check labs Anemia 223501288 D64.9 Check labs Referral needed 30721306 9 Z76.89 Adult heal th examination 431062035 Z00.00 Cholesterol screening 27 8891323 Z13.220 Diabetes m ellitus screening 842563544 Z13.1 Mixed anxi ety and depressive disorder 133393914 F41.8 Start Lexapro-sh e is aware of side effects, risks, and benefits Call office if any change in mood or behavior She declines psychiatry referral today Counseling recommende d-name/num bers given to patient Eruption 497088555 R21 Start ketoconazo le and triamcinol one Call office if no improvemen t after meds Depression screening 171 769761 Z13.31 Finding of body mass index 025639902 Z68.24 recommend healthy, well balanced mealsfocus on lean meats, fresh vegetables , fresh fruits, whole grainsredu ce fast/proce ssed foods or eating out to no more than 1-2 times per weekaim to get 30 min of exercise most days of the week- walking is a great choicealso recommend resistance training 2-3 times per week Herpesvirus infection 23 623493 B00.9 On Valtrex p.r.n. [id number] Sharee hernández MD [facility] Internal Med [place] [address] [place] [address] [place] [address] 01/01/2023 12:26:31 01/01/2023 13:01:30 Vitamin D deficiency 63022489 E55.9 on PO supplement Cobalamin deficiency 190 726978 E53.8 on PO supplement Anemia 312467762 D64.9 normalized on labs 11/2022 Mixed anxi ety and depressive disorder 863016549 F41.8 on Lexapro-sh e is aware of side effects, risks, and benefitsCa office if any change in mood or behaviorSh e declines psychiatry referral todayCouns sunitha recommende d-name/num bers given to patient Eruption 998947224 R21 now resolved Finding of body mass index 687838102 Z68.24 recommend healthy, well balanced mealsfocus on lean meats, fresh vegetables , fresh fruits, whole grainsredu ce fast/proce ssed foods or eating out to no more than 1-2 times per weekaim to get 30 min of exercise most days of the week- walking is a great choicealso recommend resistance training 2-3 times per week Herpesvirus infection 23 087687 B00.9 On Valtrex p.r.n. Hypokalemia 37246982 E87 .6 recheck labsER precaution s Liver enzy mes level above reference range 492542383 R74.8 recheck labs Health Concerns Section Related Observation LastModified by Organization Detai ls LastModified Time None Recorded Concern Status LastModified by Organization Details LastModified Time None Recorded Advance Directives Directive N: Payers Insurance Date Sequence Insurance Name Policy Number Policy Manzo Covered Member ID Manzo Member ID Guarantor Name 04/05/2024 [facility] Unique Charles Marks SELF SELF Unique Charles Marks 12/04/2022 [facility]21/20 (MEDICAID REPLACEMENT - HMO) Unique Deidre Marks [id number] Dee Marks 01/01/2023 1 [facility] (HMO[facility] Unique Charles Marks [id number] Dee Marks 04/05/2024 1 [employer] [place] ON [place] AFTER 2020 (MEDICAID REPLACEMENT - HMO) Unique Charles Marks [id number] Dee Marks 01/01/2023 2 [place] Dee Marks [id number] Dee Marks 01/01/2023 1 [employer] [place] ON [place] 2020 (MEDICAID REPLACEMENT - HMO) Unique Charles Marks [id number] Dee Marks Notes Date Note Type Note Provider Name and Address Organization Details Recorded Time 12/04/2022 text/html Unique presents today for follow-up. She is also due for annual wellness exam. She has been lost to follow-up for about a year. She reports she has an itchy rash on the inner left foot. She reports it has been there for about a month. No new soaps or scented products. No known environmental exposures. Has not tried anything OTC. She reports about a year ago she ended up having a DUI. She has been working on getting her license back and now has it back. She reports she started struggling with anxiety and depression during this time. She is interested in starting a med for this. She denies any SI or HI today. She is now 22 so she needs referral to get her well-woman exam done. She is due for labs. Yennifer Escamilla, [employer] [address] [facility], [facility] [address], [place], [address], [facility] [employer] [employer] 12/04/2022 13:15:35 01/01/2023 text/html Unique presents today for follow-up. Last visit, we started her on Lexapro for her anxiety and depression. She reports that her mood is better. She still having some social anxiety but she feels like it is manageable. She feels like this is a good dose for her. She denies any SI or HI today.She reports she invited a friend to stay with her recently and that is been helping her mood. Last visit I had also given her recommendations for a counselor, she tells me she decided she did want to get that set up. She did restart her vitamin-D and vitamin B12 supplements. She had at some mildly low potassium and some elevated liver enzymes on her last labs. We had given her repeat labs to do in 2 weeks, however she did not get that done. She tells me she has been eating bananas every day though. The rash on her ankle is resolved with the steroid cream I gave her last time. Yennifer Escamilla, [employer] [address] [facility], [facility] [address], [place], [address], [facility] 01/01/2023 13:52:50 OBGyn Episode No OBEpisode recorded.
--- OUTSIDE RECORDS SUMMARY | 2025-03-23 00:07 | XMS_ITS | Clinical Summary ---
Demographics Address [address] [place] [address] Mobile Phone Home Phone Preferred Language Frisian Marital Status Single Roman Catholic Affiliation None Race Black or Debbie rican Ethnic Group Not or Lati no Author Organization [facility] Address [address] [place] [address] Phone Care Team Providers Care Campground Attendant Name Role Phone Ben Deluna MD Primary Care Provider [phone] Allergies No known active allergies Medications fluticasone [...] on file Legal Sex Female 2:43 AM ETL INFORMATICA ARCHITECT Gender Identity Not on file Sexual Orientation Not on file Last Filed Vital Signs Vital Sign Reading Time Taken Comments Blood Pressure 114/60 06/13/2020 6:51 PM ETL INFORMATICA ARCHITECT Pulse 95 06/13/2020 6:51 PM ETL INFORMATICA ARCHITECT Temperature 36.9 C (98.5 F) 06/13/2020 6:51 PM ETL INFORMATICA ARCHITECT Respiratory Rate 16 06/13/2020 6:51 PM ETL INFORMATICA ARCHITECT Oxygen Saturation 100% 06/13/2020 6:51 PM ETL INFORMATICA ARCHITECT Inhaled Oxygen Concentration - - Weight 61.2 kg (135 lb) 06/13/2020 6:51 PM ETL INFORMATICA ARCHITECT Height 165.1 cm (5' 5) 06/13/2020 6:51 PM ETL INFORMATICA ARCHITECT Body Mass Index 22.47 06/13/2020 6:51 PM ETL INFORMATICA ARCHITECT Plan of Treatment Health Maintenance Due Date [...] Billing Address Personal/Family Mother 1985 [address] [place] [address] MEDICAID [employer] * Guarantor: BERT MARKS Account Type Relation to Patient Date of Phone Billing Address Personal/Family Mother [id number] MEDICAID [employer] [address] [place] [id number] [employer] Advance Directives * Full Code (Latest Code Status on File) Date Activated Date Inactivated Comments 08/19/2018 6:49 AM 08/20/2018 9:07 PM CPR-Full Ervin atment: FULL ARREST: Attempt Resuscitation/CPR wit intubation and mechanical ventilation. PRE-ARREST: Use entire range of life support measures to stabilize the patient. Care Teams Campground Attendant Relationship Specialty Start Date End Date Ben Deluna MD [address] [place] [id number] PCP - General 05/09/11
--- OUTSIDE RECORDS SUMMARY | 2025-03-23 00:08 | XMS_ITS | Clinical Summary ---
Author Organization [address] Address [address] [place] [id number] Care Team Providers Care E Commerce Architect Name Role Phone Unknown, Notinfile Primary Care [...] HPV Vaccines Completed 09/20/2015, 03/25, 02/13/2015 Insurance [facility] Care Teams E Commerce Architect Relationship Specialty Start Date End Date Unknown, Notinfile PCP - General 10/18/23
--- OUTSIDE RECORDS SUMMARY | 2025-03-23 00:08 | XMS_ITS | Clinical Summary ---
Demographics Address [address] [place] [address] Home Phone Preferred Language Unknown Marital Status Single Anabaptist Affiliation Unknown Race Black or Debbie rican Ethnic Group Unknown Author Organization [facility] Address [address] [place] [address] Care Team Providers Care Transportation Supervisor Name Role Phone Unavailable Primary Care Provider [...]
[2025-03-23 00:31] VITALS: BP 156/105; PULSE 86; RESP 25; O2SAT 99
[2025-03-23] MEDS: SODIUM CHLORIDE 0.9% IV 1,000 ML 999 ML IV CONT (00:36)
[2025-03-23] MEDS: ONDANSETRON INJ 4 MG/2 ML VIAL IV PUSH (00:37)
[2025-03-23] MEDS: FAMOTIDINE 20 MG/2 ML VIAL IV PUSH (00:37)
[2025-03-23 00:43] LABS: Hematocrit 44.3 % (37.0-47.0); Hemoglobin 15.1 g/dL (12.0-15.0); Immature Granulocyte Percent A 0.7 % (0-0.5); Lymphocytes Absolute Auto 0.59 K/mm3 (0.9-3.2); Mean Corpuscular HGB Conc 34.1 g/dl (32-36); Mean Corpuscular Hemoglobin 33.7 pg (26-34); Mean Corpuscular Volume 98.9 fl (80-100); Nucleated Red Blood Cells Absolute Auto 0.000 K/mm3 (0.0-0.012); Nucleated Red Blood Cells Perc 0.0 % (0.0-0.2); Platelet Count Result 360 k/mm3 (150-375); Red Blood Count 4.48 M/mm3 (4.2-5.4); White Blood Count 10.5 K/mm3 (4.5-10.0)
--- NOTE | 2025-03-23 00:51 | ED.NAVMDI ---
HPI - Nausea/Vomiting/Diarrhea General Chief complaint: Nausea/Vomiting/Diarrhea Stated complaint: vomiting Time Seen by Provider: 03/22/25 23:56 Source: patient Mode of arrival: ambulatory Limitations: no limitations History of Present Illness HPI Narrative: This is a 25-year-old female that presents emergency department for epigastric abdominal pain. Reports associated vomiting and diarrhea. Ongoing over the last couple of days. She has not been able to keep much down. Related Data Allergies Allergy/AdvReac Type Severity Reaction Status Date / Time No Known Allergies Allergy Verified 12/17/23 18:26 Review of Systems Review of Systems: All systems reviewed & are unremarkable except as noted in HPI and below Exam Narrative: GENERAL: Well-appearing, well-nourished, and in no acute distress. HEAD: Normocephalic, atraumatic. EYES: PERRLA and EOMI. ENT: Nares clear, no rhinorrhea or epistaxis. Mucous membranes moist. CHEST: Clear to auscultation. No respiratory distress. No wheezes rales or rhonchi HEART: Regular rate and rhythm. No murmur heard. Normal peripheral pulses. ABDOMEN: Soft, nondistended, normal active bowel sounds. Tender to palpation in epigastrium, without guarding EXTREMITIES: Normal range of motion. No edema. SKIN: Warm, dry, no rash. NEURO: No focal deficits. Alert and oriented x3. PSYCH: Normal mood and affect Course Course Emergency Course: patient updated on her workup. Resting comfortably. tolerating PO challenge. would like to be discharged Vital Signs Vital signs: Vital Signs Temperature 98.1 F 03/22/25 21:21 Pulse Rate 124 H 03/22/25 21:21 Respiratory Rate 18 03/22/25 21:21 Blood Pressure 127/87 03/22/25 21:21 Pulse Oximetry 100 03/22/25 21:21 Oxygen Delivery Room Air 03/22/25 21:21 Temperature 98.1 F 03/22/25 21:21 Pulse Rate 99 03/23/25 03:58 Respiratory Rate 18 03/23/25 03:58 Blood Pressure 149/91 H 03/23/25 03:58 Pulse Oximetry 98 03/23/25 03:58 Oxygen Delivery Room Air 03/23/25 00:31 MDM - Nausea/Vomiting/Diarrhea MDM Narrative Medical decision making narrative: This 25-year-old female that presents to the emergency department for nausea and vomiting. Ongoing over the last couple of days. Reporting some epigastric abdominal discomfort. She is afebrile and nontoxic appearing. Tachycardic upon arrival, this normalized with IV fluids. CBC with mild leukocytosis 10.5. Also shows hemoconcentration. Metabolic panel with evidence of dehydration, likely starvation ketosis. Patient was hydrated with 2 L of IV fluids with much improvement on repeat metabolic panel. Urine without evidence of infection. test is negative. CT abdomen pelvis without acute findings. patient updated on her workup. Resting comfortably. tolerating PO challenge. would like to be discharged. Given return precautions Differential Diagnosis Differential diagnosis: Likely food poisoning, gastroenteritis, dehydration and other (biliary colic, pancreatitis, GERD, esophagitis) Lab Data Attestation: I reviewed the patient's lab results. 03/23/25 00:38 03/23/25 03:18 Labs: Lab Results 03/22/25 03/22/25 03/23/25 Range/Units 21:38 21:39 00:38 WBC 10.5 H (4.5-10.0) K/mm3 RBC 4.48 (4.2-5.4) M/mm3 Hgb 15.1 H (12.0-15.0) g/dL Hct 44.3 (37.0-47.0) % MCV 98.9 (80-100) fl MCH 33.7 (26-34) pg MCHC 34.1 (32-36) g/dl RDW 14.2 (11.5-14.5) % Plt Count 360 (150-375) k/mm3 MPV 10.1 (7.4-10.4) fl Immature Gran % (Auto) 0.7 H (0-0.5) % Neut % (Auto) 89.9 H (45.5-73.1) % Lymph % (Auto) 5.6 L (18.3-44.2) % Pender % (Auto) 3.7 (2.6-8.5) % Eos % (Auto) 0.0 (0-4.4) % Baso % (Auto) 0.1 L (0.2-1.2) % Lymph # (Auto) 0.59 L (0.9-3.2) K/mm3 Pender # (Auto) 0.4 (0.1-0.6) K/mm3 Eos # (Auto) 0.0 (0-0.3) K/mm3 Baso # (Auto) 0.0 (0.0-0.1) K/mm3 Abs Immat Gran (auto) 0.07 H (0.00-0.031) K/mm3 Absolute Neuts (auto) 9.4 H (1.3-6.7) K/mm3 Absolute Nucleated RBC 0.000 (0.0-0.012) K/mm3 Nucleated RBC % 0.0 (0.0-0.2) % Sodium 136 L (137-145) mmol/L Potassium 4.1 (3.4-5.0) mmol/L Chloride 98 (98-107) mmol/L Carbon Dioxide 12 L (22-30) mmol/L Anion Gap 26 H (4-12) mmol/L BUN 28 H (7-17) mg/dL Creatinine 1.52 H (0.7-1.0) mg/dL Estim Creat Clear Calc 51 ml/min Estimated GFR 42 L (59 - ) Glucose 106 (65-110) mg/dL Calcium 11.1 H (8.4-10.2) mg/dL Total Bilirubin 1.0 (0.2-1.3) mg/dL AST 106 H (14-36) U/L ALT 99 H (6-35) U/L Alkaline Phosphatase 76 (38-126) U/L Total Protein 11.0 H (6.3-8.2) g/dL Albumin 5.6 H (3.5-5.1) g/dL Lipase 52 (23-300) U/L Urine Color Dark yellow (Yellow) Urine Appearance Turbid H (Clear) Urine pH 5.5 (5.0-9.0) Ur Specific [place] 1.032 (1.001-1.035) Urine Protein 3+ H (Negative) mg/dL Urine Glucose (UA) Negative (Negative) mg/dL Urine Ketones 1+ H (Negative) mg/dL Ur Blood (Man) 2+ H (Negative) Urine Nitrate Negative (Negative) Urine Bilirubin 3+ H (Negative) Urine Urobilinogen 1.0 (<2.0) mg/dL Add Ur Microanalysis Reviewed Leukocyte Esterase Rfl Trace H (Negative) DEXTER/UL Urine RBC 11-20 H (0-2) /hpf Urine WBC 0-5 (0-3) /hpf Ur Squamous Epith Cells Many H (Few) /hpf Urine Bacteria Rare /hpf Urine Casts >20 POC Urine HCG, Qual Negative (Negative) 03/23/25 Range/Units 03:18 WBC (4.5-10.0) K/mm3 RBC (4.2-5.4) M/mm3 Hgb (12.0-15.0) g/dL Hct (37.0-47.0) % MCV (80-100) fl MCH (26-34) pg MCHC (32-36) g/dl RDW (11.5-14.5) % Plt Count (150-375) k/mm3 MPV (7.4-10.4) fl Immature Gran % (Auto) (0-0.5) % Neut % (Auto) (45.5-73.1) % Lymph % (Auto) (18.3-44.2) % Pender % (Auto) (2.6-8.5) % Eos % (Auto) (0-4.4) % Baso % (Auto) (0.2-1.2) % Lymph # (Auto) (0.9-3.2) K/mm3 Pender # (Auto) (0.1-0.6) K/mm3 Eos # (Auto) (0-0.3) K/mm3 Baso # (Auto) (0.0-0.1) K/mm3 Abs Immat Gran (auto) (0.00-0.031) K/mm3 Absolute Neuts (auto) (1.3-6.7) K/mm3 Absolute Nucleated RBC (0.0-0.012) K/mm3 Nucleated RBC % (0.0-0.2) % Sodium 132 L (137-145) mmol/L Potassium 4.3 (3.4-5.0) mmol/L Chloride 101 (98-107) mmol/L Carbon Dioxide 15 L (22-30) mmol/L Anion Gap 16 H (4-12) mmol/L BUN 23 H (7-17) mg/dL Creatinine 0.98 (0.7-1.0) mg/dL Estim Creat Clear Calc 78 ml/min Estimated GFR > 60 (59 - ) Glucose 96 (65-110) mg/dL Calcium 9.3 (8.4-10.2) mg/dL Total Bilirubin (0.2-1.3) mg/dL AST (14-36) U/L ALT (6-35) U/L Alkaline Phosphatase (38-126) U/L Total Protein (6.3-8.2) g/dL Albumin (3.5-5.1) g/dL Lipase (23-300) U/L Urine Color (Yellow) Urine Appearance (Clear) Urine pH (5.0-9.0) Ur Specific [place] (1.001-1.035) Urine Protein (Negative) mg/dL Urine Glucose (UA) (Negative) mg/dL Urine Ketones (Negative) mg/dL Ur Blood (Man) (Negative) Urine Nitrate (Negative) Urine Bilirubin (Negative) Urine Urobilinogen (<2.0) mg/dL Add Ur Microanalysis Leukocyte Esterase Rfl (Negative) DEXTER/UL Urine RBC (0-2) /hpf Urine WBC (0-3) /hpf Ur Squamous Epith Cells (Few) /hpf Urine Bacteria /hpf Urine Casts POC Urine HCG, Qual (Negative) Imaging Data Radiologist's impression: CT abd/pelvis: No acute findings Critical Care Time Critical Care Time Critical Care Time: No Discharge Plan Discharge Clinical Impression: Gastroenteritis, Dehydration Patient Disposition: Home Condition: Improved Instructions: Dehydration (ED), Gastroenteritis (ED), Acute Nausea and Vomiting (ED) Additional Instructions: Return to the ER if you experience fever, abdominal pain with nausea and vomiting, you are unable to keep down liquids or solids, or any other symptoms that are concerning to you Small, frequent meals. Mackey diet. Remain well hydrated. Ondansetron as needed for nausea Follow up with primary care doctor Patient Language: Indonesian Prescriptions: New ondansetron 4 mg tablet,disintegrating 4 mg PO Q8H PRN (Reason: nausea and vomiting) Qty: 10 0RF No Action lidocaine 5 % adhesive patch,medicated 1 patch topical DAILY Qty: 15 0RF Rx Instructions: leave on most painful area for up to 12 hrs cyclobenzaprine 5 mg tablet 5 mg PO TID PRN (Reason: muscle spasm) Qty: 9 0RF Follow-up/Referrals: PHYSICIAN,MERCHANDISING STOCK ASSOCIATE [Primary Care Provider, Internal Medicine] Vernace,Ella M., DO [Physician, Family Practice] Stand Alone Forms: Work/School Release IP
[2025-03-23 00:53] LABS: Alanine Aminotransferase 99 U/L (6-35); Albumin Level 5.6 g/dL (3.5-5.1); Alkaline Phosphatase 76 U/L (38-126); Anion Gap 26 mmol/L (4-12); Aspartate Amino Transferase 106 U/L (14-36); Bilirubin,Total 1.0 mg/dL (0.2-1.3); Blood Urea Nitrogen 28 mg/dL (7-17); Calcium 11.1 mg/dL (8.4-10.2); Carbon Dioxide 12 mmol/L (22-30); Chloride 98 mmol/L (98-107); Estimated CRCL calculation 51 ml/min; Estimated Glomerular Filt Rate 42; Glucose 106 mg/dL (65-110); Lipase 52 U/L (23-300); Potassium 4.1 mmol/L (3.4-5.0); Sodium 136 mmol/L (137-145); Total Protein 11.0 g/dL (6.3-8.2)
[2025-03-23] MEDS: LACTATED RINGERS 1,000 ML 999 ML IV CONT (02:19)
[2025-03-23 02:25] VITALS: BP 116/104; PULSE 122; RESP 18; O2SAT 100
[2025-03-23 03:38] LABS: Anion Gap 16 mmol/L (4-12); Blood Urea Nitrogen 23 mg/dL (7-17); Calcium 9.3 mg/dL (8.4-10.2); Carbon Dioxide 15 mmol/L (22-30); Chloride 101 mmol/L (98-107); Estimated CRCL calculation 78 ml/min; Estimated Glomerular Filt Rate > 60; Glucose 96 mg/dL (65-110); Potassium 4.3 mmol/L (3.4-5.0); Sodium 132 mmol/L (137-145)
[2025-03-23 03:58] VITALS: BP 149/91; PULSE 99; RESP 18; O2SAT 98
== END 2025-03-23 03:59 | disposition home or self-care (01) ==
PROVIDERS: Student in an Organized Health Care Education/Training Program; Emergency Provider Physician Assistant
DX: K52.9 Noninfective gastroenteritis and colitis, unspecified (principal); E86.0 Dehydration
CPT/HCPCS: 36415; 74177; 80048; 80053; 81001; 81025; 83690; 85025; 96361; 96374; 96375; 99284; J2405; J7030; J7120; Q9967